=== PATIENT | male | born 1970 | race Caucasian/White ===

== ENCOUNTER 2021-11-01 15:30 | Emergency (ER) | payer OTHER, SELFPAY ==
[2021-11-01 16:03] VITALS: BP 117/80; PULSE 86; RESP 18; TEMP 37; O2SAT 96; BMI 38.0
--- NOTE | 2021-11-01 17:17 | ED_ITS ---
HPI - General Adult General Time Seen by Provider: 17:10 Date Seen: 11/01/21 Chief complaint: Bug Bite Stated complaint: Stings, swelling along arms Time Seen by Provider: 11/01/21 17:08 Source: patient, RN notes reviewed and old records reviewed Mode of arrival: ambulatory Limitations: no limitations History of Present Illness HPI narrative: 51-year-old male who comes in today with swelling and itching of his right arm and right side of his low back. Patient sustained yellow jacket stings on his left hand, right proximal forearm, right elbow, right mid abdomen, and right low back about 5 days ago. He was using some [id number] Benadryl and steroid cream for this, has not taken any oral medications. [place] like it was getting better but then last night noted that the area in the back was becoming more painful and he started developing more pain and swelling in the right wrist and forearm. He has had some body aches, denies chest pain, shortness of breath, fever, nausea, vomiting, diarrhea. Has not taken anything new for his symptoms. No prior history of allergic reaction to insects. Related Data Home Medications Medication Instructions Recorded Confirmed fluoxetine 20 mg capsule (Prozac) 20 mg PO DAILY 11/01/21 11/01/21 rosuvastatin 20 mg tablet (Crestor) 20 mg PO HS 11/01/21 11/01/21 Previous Rx's Medication Instructions Recorded amoxicillin 500 mg-potassium 1 tab PO TID #20 tabs 11/01/21 clavulanate 125 mg tablet (Augmentin) doxycycline hyclate 100 mg capsule 100 mg PO BID #14 caps 11/01/21 prednisone 20 mg tablet 20 mg PO BID #10 tabs 11/01/21 Allergies Allergy/AdvReac Type Severity Reaction Status Date / Time dicyclomine [From Bentyl] AdvReac Intermediate Rash Verified 11/01/21 16:07 Review of Systems Status of ROS: Reports: 10 or more systems reviewed and unremarkable except as noted in History and below Exam Narrative: Exam Narrative: General: Well-developed and well-nourished, no acute distress Head: Atraumatic and normocephalic Eyes: Pupils are equal reactive, extraocular motions intact, conjunctiva clear ENT: External nose and ears are normal, posterior pharynx without erythema or exudate Neck: No midline cervical tenderness, full spontaneous range of motion the neck, trachea midline, no adenopathy Heart: Regular rate and rhythm no murmurs or thrills Lungs: Clear to auscultation bilaterally without wheezes or crackles Abdomen: Soft, nontender, nondistended with active bowel sounds Musculoskeletal: Warmth and redness of the right distal forearm with no pain with passive movement of the wrist or elbow, no effusion of the wrist or elbow, flexor and extensor compartments are soft. Neurologic: Awake, alert, and oriented x3, no gross focal neurologic deficits, cranial nerves intact as tested Psych: Mood and affect are appropriate Skin: Warmth and redness of the extensor surface of the wrist and forearm on the right. Mild erythema and induration overlying the extensor compartment proximal to this with central puncture, area of about 8 cm of erythema on the distal posterior upper arm. 12 cm area of warmth and erythema of the right low back. Const: Vital Signs, click to edit/add: Vital Signs - 24 hr 11/01/21 16:03 Temperature 98.6 F Pulse Rate [Pulse Oximeter] 86 Respiratory Rate 18 Blood Pressure [Ri ght Upper Arm] 117/80 Pulse Oximetry 96 Oxygen Delivery Me thod Room Air Course Course Hospital Course: Patient seen and examined, prior records are reviewed. Patient presents with increasing redness and swelling of areas of the right forearm and right flank where he was stung by yellow jackets about a week ago. He has several areas where he was stung that have improved. The areas of the proximal forearm and distal upper arm appears to represent local reaction to this stings. However, an area where he is not stung on the distal forearm/right wrist, there is warmth and induration which likely represents cellulitis. Additionally, the staying on the right flank has developed increased warmth and erythema likely representing infection. Patient will be started on Rocephin and doxycycline in the emergency department and will be discharged with Augmentin and doxycycline along with short course of prednisone for the noninfected stings with continued local reaction. He can take oral antihistamines as well. Vital Signs Vital signs: Initial Vital Signs Temperature 98.6 F 11/01/21 16:03 Temperature Source Temporal Artery Scan 11/01/21 16:03 Pulse Rate 86 11/01/21 16:03 Respiratory Rate 18 11/01/21 16:03 Blood Pressure 117/80 11/01/21 16:03 Blood Pressure Mean 92 11/01/21 16:03 Blood Pressure Position Sitting 11/01/21 16:03 Pulse Oximetry 96 11/01/21 16:03 Oxygen Delivery Method 11/01/21 16:03 Vital Signs Temperature 98.6 F 11/01/21 16:03 Pulse Rate 86 11/01/21 16:03 Respiratory Rate 18 11/01/21 16:03 Blood Pressure 117/80 11/01/21 16:03 Pulse Oximetry 96 11/01/21 16:03 Oxygen Delivery Method 11/01/21 16:03 Temperature 98.6 F 11/01/21 16:03 Pulse Rate 86 11/01/21 16:03 Respiratory Rate 18 11/01/21 16:03 Blood Pressure 117/80 11/01/21 16:03 Pulse Oximetry 96 11/01/21 16:03 Oxygen Delivery Method 11/01/21 16:03 Medical Decision Making Medical Records Medical records reviewed: Yes I reviewed the patient's medical records Lab Data Lab results reviewed: Yes I reviewed the patient's lab results Discharge Plan Discharge Clinical Impression: Local reaction to insect sting, Infected insect bite or sting Patient Disposition: Home, Self-Care Condition: Stable Instructions: Insect Bite or Sting (ED), Cold Compress or Soak (ED) Additional Instructions: Take antibiotics and prednisone as prescribed. You may take Benadryl to help with itching. Follow-up with your primary care doctor as needed. Activity Level: No Restrictions Discharge Diet: Regular Prescriptions: New amoxicillin-pot clavulanate [Augmentin] 500-125 mg tablet 1 tab PO TID Qty: 20 0RF doxycycline hyclate 100 mg capsule 100 mg PO BID Qty: 14 0RF prednisone 20 mg tablet 20 mg PO BID Qty: 10 0RF No Action rosuvastatin [Crestor] 20 mg tablet 20 mg PO HS fluoxetine [Prozac] 20 mg capsule 20 mg PO DAILY Stand Alone Forms: [employer] Info Instructions
--- OUTSIDE RECORDS SUMMARY | 2021-11-01 17:29 | XMS_ITS | Encounter Summary ---
:1970 Author Organization [facility] Address [address] [place] [address] Care Team Providers Name Role Phone Maria G Henriquez Primary Care Provider [phone] Encounter Details Date Type Department Care Team Description 04/06/2021 Admin Visit Department of Family [facility], [facility] M[facility], in [place], [address] [place], [place] [address] [place] [address] [place], [place] [phone] (Work) [phone] Social History Tobacco Use Types Packs/Day Years Used Date Smoking Tobacco: Never Smokeless Tobacco: Never Alcohol Use Standard Drinks/Week Comments Not Currently 0 (1 standard drink = 0.6 oz pure alcoho l) stpped drinking 13 years Alcohol Habits Answer Date Recorded How often do you have a drink containing Never 08/12/2021 alcohol? How many drinks containing alcohol do you have Not asked on a typical day when you are drinking? How often do you have six or more drinks on Not asked one occasion? Comment: stpped drinking 13 years 12/02/2020 Social Isolation Answer Date Recorded In a typical week, how many times do you talk on the phone T wice a week 08/12/2021 with family, friends, or neighbors? How often do you get together with friends or relatives? Nev er 08/12/2021 How often do you attend voodoo or confucianism services? Never 08/12/2021 Do you belong to any clubs or organizations such as voodoo N o 08/12/2021 groups, unions, fraternal or athletic groups, or school groups? How often do you attend meetings of the clubs or Never 08/12/2021 organizations you belong to? Are you now , , , , never Mar ried 08/12/2021 or living with a partner? Physical Activity Answer Date Recorded On average, how many days per week do you engage in moderate to 0 days 08/12/2021 strenuous exercise (like walking fast, running, jogging, dancing, swimming, biking, or other activities that cause a light or heavy sweat)? On average, how many minutes do you engage in exercise at th is 0 min 08/12/2021 level? Stress Answer Date Recorded Do you feel stress - tense, restless, nervous, or anxious, R ather much 08/12/2021 or unable to sleep at night because your mind is troubled all the time - these days? Financial Resource Strain Answer Date Recorded How hard is it for you to pay for the very basics like Not v brian hard 08/12/2021 food, housing, medical care, and heating? Intimate Partner Violence Answer Date Recorded Within the last year, have you been afraid of your partner o r No 08/12/2021 ex-partner? Within the last year, have you been humiliated or emotionall y No 08/12/2021 abused in other ways by your partner or ex-partner? Within the last year, have you been kicked, hit, slapped, or No 08/12/2021 otherwise physically hurt by your partner or ex-partner? Within the last year, have you been raped or forced to have any No 08/12/2021 kind of sexual activity by your partner or ex-partner? Food Insecurity Answer Date Recorded Within the past 12 months, you worried that your food would Never true 08/12/2021 run out before you got money to buy more. Within the past 12 months, the food you bought just didn't N ever true 08/12/2021 last and you didn't have money to get more. Transportation Needs Answer Date Recorded In the past 12 months, has lack of transportation kept you f rom No 08/12/2021 medical appointments or from getting medications? In the past 12 months, has lack of transportation kept you f rom No 08/12/2021 meetings, work, or getting things needed for daily living? Housing Stability Answer Date Recorded In the last 12 months, was there a time when you were not ab le Yes 08/12/2021 to pay the mortgage or rent on time? In the last 12 months, how many places have you lived? 1 08/12/2021 In the last 12 months, was there a time when you did not hav e a No 08/12/[address] or slept in a snf (including now)? Education Answer Date Recorded What is the highest level of school you have completed or 12 th grade 02/08/2021 the highest degree you have received? 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 documented in this encounter Results SARS Coronavirus-2 RNA, V Asymptomatic (04/06/2021 10:16 AM WEAVER APPRENTICE) [facility] Method Time Signature SARS-CoV-2 Swab, 04/06/2021 ECLR Specimen Nasopharynx 8:39 PM WEAVER APPRENTICE Source SARS CoV-2 Undetected Undetected 04/06/2021 ECLR RNA, TMA 8:39 PM WEAVER APPRENTICE Comment: SARS-CoV-2 RNA absent. This result does not rule out COVID-19 in the patient, as the sensitivity of the test depends o n the timing of the specimen collection and the quality of the specim en. Result should be correlated with patient's history and clinical presentat ion. ----ADDITIONAL INFORMATION---- This molecular amplification test was pe rformed using the Aptima SARS-CoV-2 assay ([employer] on the [place] tem under emergency use authorization (EUA) by the U.S. Food and Drug Administ ration. Fact sheets for this EUA assay can be fo und at the following links: For Healthcare Providers: https://www.fd a.gov/media/153671/download For Patients: https://www.fda.gov/media/ 529174/download Specimen Anatomical Collection Method Collection Time Receive d Time (Source) Location / / Volume Laterality Varies 04/06/2021 10:16 04/06/2021 3:00 (Nasopharynx) AM WEAVER APPRENTICE PM WEAVER APPRENTICE Maverick Stuart M.D. LAB MICROBIOLOGY - GENERAL O RDERABLES Performing Organization Address City/State/ZIP Code Phon e Number [facility]- [address] [place] [phone] [facility] [place] [address] System in [address] documented in this encounter Visit Diagnoses Diagnosis Screening Cancer Colon documented in this encounter Additional Health Concerns Infection Onset Date Last Indicated Resolved Time COVID19 Pending 04/05/2021 04/06/2021 04/06/2021 8:40 PM WEAVER APPRENTICE documented as of this encounter Care Teams Collision Repair Technician Relationship Specialty Start Date End Date Maria G Henriquez M.B.B.S. PCP - General Internal Medicine 11/24/[address] [place] [id number] documented as of this encounter
--- OUTSIDE RECORDS SUMMARY | 2021-11-01 17:29 | XMS_ITS | Encounter Summary ---
:1970 Author Organization [facility] Address [address] [place] [address] Care Team Providers Name Role Phone Maria G Henriquez M.B.B.S. Primary Care Provider [phone] Reason for Visit Reason Comments Allergies Encounter Details Date Type Department Care Team Description 06/14/2021 Office Visit Department of Maria G Henriquez, Allergy Seasonal Internal Medicine in [place] (Primary Dx) [address] [phone] Social History Tobacco Use Types Packs/Day Years [...] do you talk on the phone T nashce a week 08/12/2021 with family, friends, or neighbors? How often do you get together with friends or relatives? Nev er 08/12/2021 How often do you attend advent or restoration services? Never 08/12/2021 Do you belong to any clubs or organizations such as advent N o 08/12/2021 groups, unions, fraternal or [...] place to sleep or slept in a prison (including now)? Education Answer Date Recorded What is the highest level of school you have completed or 12 th grade 02/08/2021 the highest degree you have received? 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 - 06/14/2021 4:30 PM CDT SUBJECTIVE CHIEF COMPLAINT / REASON FOR VISIT Miguel Navarro is a 51 y.o. male who presents for evaluation of Allergies. HISTORY OF PRESENT ILLNESS 51 years old male here in the clinic today with severe allergy reactions triggered by seasonal changes. He has similar episodes in the past, not responding to conventional allergy approach with antihistamine and Flonase. He used to improved with Kenalog injections. He is here today to get injection. He has nasal congestion, sinus pressure. The following portions of the patient's history were reviewed and updated as appropriate: allergies,current medications, family history, medical history, social history, surgical history and problem list. REVIEW OF SYSTEMS All other systems reviewed and are negative. OBJECTIVE BP 136/87 (BP Location: Left arm, Patient Position: Sitting, Cuff Size: Large) Pulse 61 Temp (!)35.9 ??C (Temporal) Ht 177.6 cm Wt 117 kg BMI 37.06 kg/m?? PHYSICAL EXAM Physical Exam Physical exam not done today ASSESSMENT / PLAN #1 Allergy Seasonal Acute exacerbation of seasonal allergy not responding to [id number] antihistamine and Flonase.He had similar episodes in the past and responds well to Kenalog injections per chart review. Encouraged the patient to continue taking antihistamine and Flonase for his allergies. 40 mg of Kenalog IM given in the clinic today. documented in this encounter Plan of Treatment Not on filedocumented as of this encounter Visit Diagnoses Diagnosis Allergy Seasonal - Primary documented in this encounter Administered Medications Inactive Administered Medications - up to 3 most recent administrations Medication Order MAR Action Action Date Dose Rate Site triamcinolone acetonide injection Given 06/14/2021 5:03 PM CDT 4 0 mg 40 mg (KENALOG-40) 40 mg, intra-articular, Once, On Sun06/14/21 at 1700, For 1 dose documented in this encounter Additional Health Concerns Assessment Noted Time PHQ-9 Depression Total Score: 4 04/19/2021 2:49 PM KNIT GOODS PRESS HAND documented as of this encounter Care Teams Data Integrity Consultant Relationship Specialty Start Date End Date Maria G Henriquez M.B.B.S. PCP - General Internal Medicine 11/24/20 [place] [phone] documented as of this encounter
--- OUTSIDE RECORDS SUMMARY | 2021-11-01 17:29 | XMS_ITS | Encounter Summary ---
:1970 Author Organization [facility] Address [address] [place] [address] Care Team Providers Name Role Phone Maria G Henriquez Primary Care Provider [phone] Reason for Visit Reason Onset Date Comments Testing For Upper Respiratory Virus Symptoms 04/05/2021 Encounter Details Date Type Department Care Team Description 04/05/2021 External Outreach Department of [facility] Zita Sweet Contact With And Medicine, Rafael Wells P.A.-C. (Suspected) Exposure Clinic, in [address] To COVID-19 (Primary [place], [place] Dx) [address] [facility] [address] [place], [place] [phone] (Work) [phone] Social History Tobacco Use Types Packs/Day Years [...] er 08/12/2021 How often do you attend judaism or presybeterian services? Never 08/12/2021 Do you belong to any clubs or organizations such as judaism N o 08/12/2021 groups, unions, fraternal or [...] place to sleep or slept in a fdc (including now)? Education Answer Date Recorded What is the highest level of school you have completed or 12 th grade 02/08/2021 the highest degree you have received? 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 - 04/05/2021 8:47 AM CST Encounter created for symptomatic infectious disease screening with possible COVID, Influenza, RSV, and/or Group A Strep testing. R EXPRESS CLERK documented in this encounter Plan of Treatment Not on filedocumented as of this encounter Visit Diagnoses Diagnosis Contact With And (Suspected) Exposure To COVID-19 - Primary documented in this encounter Additional Health Concerns Infection Onset Date Last Indicated Resolved Time COVID19 Pending 04/05/2021 04/06/2021 04/06/2021 8:40 PM MOTOR EXPRESS CLERK documented as of this encounter Care Teams Pole Lift Operator Relationship Specialty Start Date End Date Maria G Henriquez M.B.B.S. PCP - General Internal Medicine 11/24/20 [place] [phone] documented as of this encounter
--- OUTSIDE RECORDS SUMMARY | 2021-11-01 17:29 | XMS_ITS | Encounter Summary ---
:1970 Author Organization [facility] Address [address] [place] [address] Care Team Providers Name Role Phone Maria G Henriquez Primary Care Provider [phone] Reason for Visit Auth/Cert Specialty Diagnoses / Procedures Referred By Contact Refer red To Contact Diagnoses Screening Colon Cancer Average Risk Screening Colon Cancer Average Risk [Z12.11] Procedures COLONOSCOPY Referral ID Status Reason Start Date Expiration Date Visits Requ ested Visits Authorized [id number] 1 1 Encounter Details Date Type Department Care Team Description 04/08/2021 Hospital Encounter Department of Maverick Stuart, Gastroenterology in [place], [place] [address] [place] [address] [phone] [id number] Social History Tobacco Use Types Packs/Day Years [...] er 08/12/2021 How often do you attend denominational or mu-ism services? Never 08/12/2021 Do you belong to any clubs or organizations such as denominational N o 08/12/2021 groups, unions, fraternal or [...] place to sleep or slept in a half-way (including now)? Education Answer Date Recorded What is the highest level of school you have completed or 12 th grade 02/08/2021 the highest degree you have received? 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 documented as of this encounter Last Filed Vital Signs Vital Sign Reading Time Taken Comments Blood Pressure 114/72 04/08/2021 12:30 PM GOODWILL AMBASSADOR Pulse 62 04/08/2021 12:45 PM GOODWILL AMBASSADOR Temperature 36 ??C (96.8 ??F) 04/08/2021 11:09 AM GOODWILL AMBASSADOR Respiratory Rate 20 04/08/2021 11:09 AM GOODWILL AMBASSADOR Oxygen Saturation 98% 04/08/2021 12:45 PM GOODWILL AMBASSADOR Inhaled Oxygen Concentration - - Weight 117 kg (258 lb 6.1 oz) 04/08/2021 11:03 AM GOODWILL AMBASSADOR Height - - Body Mass Index 37.16 03/14/2021 3:14 PM GOODWILL AMBASSADOR documented in this encounter Medications at Time of Discharge Medication Sig Dispensed Refills Start Date End Date FLUoxetine (PROzac) 40 TAKE 1 CAPSULE (40 90 capsule 3 02/23 mg capsuleIndications: MG TOTAL) BY MOUTH Depression Major One DAILY. Episode Moderate (HCC) polyethylene glycol Drink 1st portion of 238 g 0 2021 (MIRALAX) 17 gram/dose prep at 6 PM the oral powderIndications: evening before. 2nd Screening Colon Cancer portion must be Average Risk started 4 hours before and finished 2 hours prior to report time blood sugar diagnostic 1 strip by not 0 (Contour Next Test applicable route. Strips) strips lancing device misc 1 each by not 0 05/26/2020 applicable route. rosuvastatin (CRESTOR) Take 1 tablet (20 mg 90 tablet 3 10/18/2021 20 mg tabletIndications: total) by mouth Hyperlipidemia Mixed daily. documented as of this encounter Procedure Notes Maverick Stuart M.D. - 04/08/2021 12:04 PM CSTAssociated Order(s): COLONOSCOPY [facility] Patient Name: Miguel Navarro Procedure Date: 04/08/2021 12:04 PM Date of : 1970 Age: 50 Gender: Male Procedure: Colonoscopy Providers: Maverick Sturat MD, Maria G Henriquez (Ordering Provider) Referring Provider: Maria G Henriquez Pre-op Diagnoses: High risk colon cancer surveillance: Personal history of colonic polyps Post-op Diagnoses: - Preparation of the colon was fair. - Five 1 to 14 mm polyps in the transverse colon and in the cecum, removed with a cold snare. Resected and retrieved. - Post-polypectomy scars in the transverse colon and in the cecum. - Diverticulosis in the sigmoid colon. - The examination was otherwise normal on direct and retroflexion views. Recommendation: - Repeat colonoscopy in 2 years because the bowel preparation was suboptimal and for surveillance. - Need extended prep. Findings: The perianal and digital rectal examinations were normal. Five sessile polyps were found in the transverse colon and cecum. The polyps were 1 to 14 mm in size. These polyps were removed with a cold snare. Resection and retrieval were complete. A small post polypectomy scar was found in the transverse colon and in the cecum. There was no evidence of the previous polyp. Multiple small-mouthed diverticula were found in the sigmoid colon. The exam was otherwise without abnormality on direct and retroflexion views. Medicines: Monitored Anesthesia Care Estimated Blood Loss: Estimated blood loss: none. Complications: No immediate complications. Procedure Details: The patient was seen, evaluated, and history reviewed. Airway and heart and lung exams were performed and were satisfactory for planned sedation care. The risks, benefits and alternatives for the procedure and sedation were discussed and informed consent was obtained. A procedural pause was conducted in the presence of assisting personnel to verify the correct patient identity and procedure to be performed. Throughout the procedure, the patient's blood pressure, pulse, and oxygen saturations were monitored continuously. The Colonoscope was introduced under direct vision through the anus and advanced to the terminal ileum. The colonoscopy was performed without difficulty. The patient tolerated the procedure well. The quality of the bowel preparation was evaluated using the BBPS ([place] Bowel Preparation Scale) with scores of: Right Colon = 2 (minor amount of residual staining, small fragments of stool and/or opaque liquid, but mucosa seen well), Transverse Colon = 2 (minor amount of residual staining, small fragments of stool and/or opaque liquid, but mucosa seen well) and Left Colon = 2 (minor amount of residual staining, small fragments of stool and/or opaque liquid, but mucosa seen well). The total BBPS score equals 6. The quality of the bowel preparation was fair. Sedation: DYLAN Stuart MD 04/08/2021 12:07:23 PM This report has been signed electronically. Number of Addenda: 0 Note Initiated On: 04/08/2021 12:04 PM WILL AMBASSADOR documented in this encounter Plan of Treatment Not on filedocumented as of this encounter Procedures Procedure Name Priority Date/Time Associated Diagnosis Comme nts COLONOSCOPY 04/08/2021 12:04 PM Results for this GOODWILL AMBASSADOR procedure are i n the results section. SURGICAL PATHOLOGY Routine 04/08/2021 11:49 AM Re sults for this GOODWILL AMBASSADOR procedure are i n the results section. COLONOSCOPY 04/08/2021 11:34 AM Screening Colon GOODWILL AMBASSADOR Cancer Average Risk documented in this encounter Results COLONOSCOPY (04/08/2021 12:04 PM GOODWILL AMBASSADOR) Specimen (Source) Anatomical Location Collection Method / Collectio n Time Received Time / Laterality Volume Narrative This result has an attachment that is no t available. Procedure Note Maverick Stuart M.D. - 04/08/2021 12:04 PM CST [facility] Patient Name: Miguel Navarro Procedure Date: 04/08/2021 12:04 PM Date of : 1970 Age: 50 Gender: Male Procedure: Colonoscopy Providers: Maverick Stuart MD, Maria G Henriquez (Ordering Provider) Referring Provider: Maria G Henriquez Pre-op Diagnoses: High risk colon cancer surveillance: Personal history of colonic polyps Post-op Diagnoses: - Preparation of the colon was fair. - Five 1 to 14 mm polyps in the transve rse colon and in the cecum, removed with a cold snare. Resected and retrieved. - Post-polypectomy scars in the transve rse colon and in the cecum. - Diverticulosis in the sigmoid colon. - The examination was otherwise normal on direct and retroflexion views. Recommendation: - Repeat colonoscopy in 2 years because the bowel preparation was suboptimal and for surveillance. - Need extended prep. Findings: The perianal and digital rectal examina tions were normal. Five sessile polyps were found in the t ransverse colon and cecum. The polyps were 1 to 14 mm in size. These p olyps were removed with a cold snare. Resection and retrieval were com plete. A small post polypectomy scar was found in the transverse colon and in the cecum. There was no evidence of the previous polyp. Multiple small-mouthed diverticula were found in the sigmoid colon. The exam was otherwise without abnormal ity on direct and retroflexion views. Medicines: Monitored Anesthesia Care Estimated Blood Loss: Estimated blood lo ss: none. Complications: No immediate complication s. Procedure Details: The patient was seen, evaluated, and history reviewed. Airway and heart and lung exa ms were performed and were satisfactory for hermelindo nned sedation care. The risks, benefits and alternatives fo r the procedure and sedation were discussed a nd informed consent was obtained. A procedural paus e was conducted in the presence of assisting personnel to verify the correct patient identity and procedure to be performed. Throughout the procedure, the patient's blood pressure, pulse, and ox ygen saturations were monitored continuously . The Colonoscope was introduced under di rect vision through the anus and advanced to the te rminal ileum. The colonoscopy was performed without d ifficulty. The patient tolerated the procedure wel l. The quality of the bowel preparation was ev aluated using the BBPS ([place] Bowel Preparation Scal e) with scores of: Right Colon = 2 (minor amoun t of residual staining, small fragments of stool and/ or opaque liquid, but mucosa seen well), Transver se Colon = 2 (minor amount of residual staining, sma ll fragments of stool and/or opaque liquid, but muco sa seen well) and Left Colon = 2 (minor amount of res idual staining, small fragments of stool and/ or opaque liquid, but mucosa seen well). The tota l BBPS score equals 6. The quality of the bowel prep aration was fair. Sedation: DYLAN Stuart MD 04/08/2021 12:07:23 PM This report has been signed electronical ly. Number of Addenda: 0 Note Initiated On: 04/08/2021 12:04 PM Maria G Junior GI PROCEDURE ORDERABLES Surgical Pathology (04/08/2021 11:49 AM GOODWILL AMBASSADOR) Component Value Ref Test Analysis Performed At [facility] gist Range Method Time Signature 04/12/2021 ECLR 8:22 AM GOODWILL AMBASSADOR Report Ray A. 04/12/2021 ECLR electronically Lisandra Serrano 8:22 AM GOODWILL AMBASSADOR signed by Specimen Received A. Cecal polyp 04/12/2021 ECLR B. Transverse colon polyp 8:22 AM GOODWILL AMBASSADOR Clinical History Colon cancer 04/12/2021 ECLR screening 8:22 AM GOODWILL AMBASSADOR average risk Gross Description A: ??Received in a container labeled cecum are tw o tissues, 04/12/2021 ECLR 1.1 cm to 1.3 cm. All submitted in cassette A1. 8:22 AM GOODWILL AMBASSADOR B: ??Received in a container labeled transverse colon are multiple tissues, 0.3 cm to 1.2 cm. All submitted in cassette B1. [id number] Interpretation FINAL DIAGNOSIS 04/12/2021 ECLR A. ??Colon, cecum, biopsy: ??Sessile serrated adenoma. 8:22 AM GOODWILL AMBASSADOR B. ??Colon, transverse, biopsy: ??Tubulovillous adenoma. Specimen (Source) Anatomical Collection Method Collection Time Re ceived Time Location / / Volume Laterality Polyp (Colon) 04/08/2021 11:49 AM GOODWILL AMBASSADOR Polyp (Colon) 04/08/2021 11:59 AM GOODWILL AMBASSADOR Narrative This result has an attachment that is no t available. Maverick Stuart M.D. LAB SURG PATH ORDERABLES Performing Organization Address City/State/ZIP Code Phon e Number [facility]- [address] [place] [address] [phone] [facility] [place] [address] System in [place] [address] [facility] documented in this encounter Visit Diagnoses Diagnosis Screening Cancer Colon - Primary Obstructive Sleep Apnea Adult documented in this encounter Admitting Diagnoses Diagnosis Screening Cancer Colon documented in this encounter Administered Medications Inactive Administered Medications - up to 3 most recent administrations Medication Order MAR Action Action Date Dose Rate Site lactated ringers New Bag 04/08/2021 11:10 AM 100 mL/hr 100 mL/hr 100 mL/hr, intravenous, [employer]WILL AMBASSADOR Continuous, Starting on Sun04/08/21 at 1100, Pre-Op sodium chloride 0.9 % injection 10 mL 10 mL, intravenous, As needed, line care , Starting on Sun04/08/21 at 1054, Pre-Op, Peripheral Intravenous Catheter and Rapid Infusion Cat heter, prior to blood sampling, post blood transfusion or post blood samplin g sodium chloride 0.9 % injection 3 mL 3 mL, intravenous, As needed, line care, Starting on Sun04/08/21 at 1054, Pre-Op, Prior to and following infusion and betw een multiple consecutive infusions: sodium chloride 0.9 % injection sodium chloride 0.9 % injection 3 mL 3 mL, intravenous, Every 12 hours scheduled, First dos e on Sun04/08/21 at 2100, Pre-Op, Peripheral Intravenous Catheter and Rapid Infu kaylan Catheter, when no infusion to maintain patency documented in this encounter Active and Recently Administered Medications Times are shown in [employer]WILL AMBASSADOR. Scheduled Medication Order 04/06/2021 04/07/2021 04/08/2021 sodium chloride 0.9 % injection 3 mL 3 mL, intravenous, Every 12 hours schedu led, First dose on Sun04/08/21 at 2100, Pre-Op, Peripheral Intravenous Catheter and Rapid Infusion Catheter, when no infusion to maintain patency Continuous Medication Order 04/06/2021 04/07/2021 04/08/2021 lactated ringers 1110 (New Bag - Provider: Maira Booker R.N.)1216 (Stopped - Provider: Leslie Roman R.N.) 100 mL/hr, intravenous, Continuous, Starting on Sun04/08/21 at 1 100, Pre-Op PRN Medication Order 04/06/2021 04/07/2021 04/08/2021 sodium chloride 0.9 % injection 10 mL 10 mL, intravenous, As needed, line care , Starting on Sun04/08/21 at 1054, Pre- Op, Peripheral Intravenous Catheter and Rapid Infusion Catheter, prior to blood sampling, post blood transfusion or post blood sampling sodium chloride 0.9 % injection 3 mL 3 mL, intravenous, As needed, line care, Starting on Sun04/08/21 at 1054, Pre- Op, Prior to and following infusion and between multiple consecutive infusions: sodium chloride 0.9 % injection documented in this encounter Care Teams Reproduction Production Manager Relationship Specialty Start Date End Date Maria G Henriquez M.B.BHairS. PCP - General Internal Medicine 11/24/20 [address] [place] [address] documented as of this encounter
--- OUTSIDE RECORDS SUMMARY | 2021-11-01 17:29 | XMS_ITS | Encounter Summary ---
:1970 Author Organization [facility] Address [address] [place] [address] Care Team Providers Name Role Phone Maria G HenriquezBHairSaHir Primary Care Provider [phone] Encounter Details Date Type Department Care Team Description 08/17/2021 Orders Only [facility] P[facility] MNT Estelita Sigala Di abetes Mellitus Type M.D. 2 ([facility]) [address] [place] [address] Social History Tobacco Use Types Packs/Day Years [...] er 08/12/2021 How often do you attend muslim or presybeterian services? Never 08/12/2021 Do you belong to any clubs or organizations such as muslim N o 08/12/2021 groups, unions, fraternal or [...] place to sleep or slept in a fci (including now)? Education Answer Date Recorded What is the highest level of school you have GED or equivale nt 08/11/2021 completed or the highest degree you have received? 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 PCP - General Internal Medicine 11/24/20 [address] [place] [phone] documented as of this encounter
--- OUTSIDE RECORDS SUMMARY | 2021-11-01 17:29 | XMS_ITS | Clinical Summary ---
:1970 Author Organization [facility] Address [address] [place] [address] Care Team Providers Name Role Phone Maria G Henriquez Primary Care Provider [phone] Source Comments Patient records contain information from all sites at [facility]. For routine questions regarding patient records, call [phone] during business hours, M-F 8:00 AM - 5:00 PM Central Time. Record requests for emergency care only can be directed to [phone] at any time.[facility] Allergies Active Allergy Reactions Severity Noted Date Comments Atorvastatin Calcium Other (see comments) 12/02/2010 Dicyclomine Rash Low 08/31/2015 Dicyclomine Hcl Other (see comments) 12/02/2010 Simvastatin Other (see comments) 12/02/2010 Medications Medication Sig Dispensed Refills Start End Date Status Date blood sugar 1 strip by not 0 Act franklyn diagnostic (Contour applicable 1 Next Test Strips) route. strips lancing device misc 1 each by not 0 Active applicable 1 route. FLUoxetine (PROzac) TAKE 1 CAPSULE 90 capsule 3 Active 40 mg (40 MG TOTAL) 2 capsuleIndications: BY MOUTH Depression Major DAILY. One Episode Moderate (HCC) polyethylene glycol Drink 1st 238 g 0 Active (MIRALAX) 17 portion of 2 gram/dose oral prep at 6 PM powderIndications: the evening Screening Colon before. 2nd Cancer Average Risk portion must be started 4 hours before and finished 2 hours prior to report time fluticasone Administer 2 0 Activ e propionate sprays into (FLONASE) 50 each nostril mcg/actuation nasal daily. spray cetirizine (ZyrTEC) Take 10 mg by 0 Active 10 mg tablet mouth daily. rosuvastatin Take 1 tablet 90 tablet 3 Act franklyn (CRESTOR) 20 mg (20 mg total) 2 tabletIndications: by mouth Hyperlipidemia daily. Mixed rosuvastatin Take 1 tablet 90 tablet 3 10/19/19 Dis continued (CRESTOR) 20 mg (20 mg total) 2 22 (Reorder) tabletIndications: by mouth Hyperlipidemia daily. 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 09/28/2021 Orders Only Maria G Henriquez, M.B.B.S. 08/17/2021 Orders Only Estelita Sigala, Diabetes Carol litus Type M.DHair 2 (HCC) from Last 3 Months Immunizations Name Administration Dates Next Due HepB, Unspecified 05/31/1998, 03/31/1998, 01/19/1998 SARS-COV-2 (COVID-19) - PFIZER (12 years 03/02/2020, 020 or older) Td, (Adult) Unspecified 08/13/2007 Tdap 09/07/2018, 08/13/2007 Family History Medical History Relation Name Comments Arthritis Brother 1 Aidan Rheum arthritis Brother 2 Aidan m Rheumatoid arteritis Maternal Grandmother Alcohol abuse Mother Mellissa Arthritis Mother Mellissa Rheum arthritis Mother Mellissa Rheumatoid arteritis Mother Mellissa Rheum arthritis Paternal Grandmother Yary Relation Name Status Comments Brother 1 Aidan Brother 2 Aidan m Maternal Grandmother Mother Mellissa Paternal Grandmother Yary Social History Tobacco Use Types Packs/Day Years [...] do you talk on the phone T ash a week 08/12/2021 with family, friends, or neighbors? How often do you get together with friends or relatives? Nev er 08/12/2021 How often do you attend zoroastrian or confucianism services? Never 08/12/2021 Do you belong to any clubs or organizations such as zoroastrian N o 08/12/2021 groups, unions, fraternal or [...] place to sleep or slept in a jail (including now)? Education Answer Date Recorded What is the highest level of school you have GED or equivale nt 08/11/2021 completed or the highest degree you have received? 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 Filed Vital Signs Vital Sign Reading Time Taken Comments Blood Pressure 136/87 06/14/2021 4:16 PM CDT Pulse 61 06/14/2021 4:16 PM CDT Temperature 35.9 ??C (96.6 ??F) 06/14/2021 4:16 PM CDT Respiratory Rate 20 04/08/2021 11:09 AM ELECTRICAL INSTRUMENT REPAIRER Oxygen Saturation 98% 04/08/2021 12:45 PM ELECTRICAL INSTRUMENT REPAIRER Inhaled Oxygen Concentration - - Weight 117 kg (257 lb 11.5 oz) 06/14/2021 4:16 PM CDT Height 177.6 cm (5' 9.92) 06/14/2021 4:16 PM CDT Body Mass Index 37.06 06/14/2021 4:16 PM CDT Plan of Treatment Health Maintenance Due Date Last Done Comments CT Colonography 1970 Cologuard 1970 Diabetic Office Visit with Foot 1970 Exam Dilated Eye Exam 1970 HIV Screening 1970 Hepatitis C Screening 1970 Urine Albumin 1970 Pneumococcal vaccine (0-64 years) 1975 (1 - PCV) Zoster Vaccines (1 of 2) 2019 Hemoglobin A1C 09/11/2021 03/14/2021, 12/07/2020, 03/25/2018 Depression Monitoring (PHQ-9) 10/21/2021 06/20/2021 COVID-19 Vaccine (4 - Booster for 10/26/2021 08/31/2021, , Pfizer series) 02/10/2020 Influenza Vaccine (#1) 2021 Creatinine Level 12/07/2021 12/07/2020, 05/19/2020, 02/03/2019, Additional history exists Visit: Chronic Disease, age 18+ 03/14/2022 03/14/2021 Office Visit for Blood Pressure 06/14/2022 06/14/2021 Check / Re-check Colonoscopy 04/08/2023 04/08/2021, 04/08/2021, 04/05/2018 Colorectal Cancer Surveillance 04/08/2023 Lipid (Cholesterol) Screening 12/07/2025 12/07/2020, 2020, 02/03/2019, Additional history exists DTaP,Tdap,and Td Vaccines (3 - Td 09/07/2028 09/07/2018, , or Tdap) 08/13/2007 Hepatitis B Vaccines Completed 05/31/1998, 03/31/1998, 01/19/1998 Insurance Payer Benefit Plan Subscriber ID Effective Dates Phone Address Type / Group [employer] [place] [id number] 2020-[place] [phone] [address] [address] PPO BLUE SHIELD t [address] [place] [id number] Advance Directives For more information, please contact: [phone] Latest Code Status on File Code Status Date Activated Date Inactivated Comments Full Code 04/08/2021 12:57 PM 04/08/2021 3:02 PM Full Code: Discussed Care Teams Deckhand Fishing Vessel Relationship Specialty Start Date End Date Maria G Henriquez M.B.B.S. PCP - General Internal Medicine 11/24/20 [address] [phone]
--- OUTSIDE RECORDS SUMMARY | 2021-11-01 17:29 | XMS_ITS | Encounter Summary ---
:1970 Author Organization [facility] Address [address] [place] [address] Care Team Providers Name Role Phone Maria G Henriquez Primary Care Provider [phone] Reason for Visit Auth/Cert Specialty Diagnoses / Procedures Referred By Contact Refer red To Contact Diagnoses Screening Colon Cancer Average Risk Screening Colon Cancer Average Risk [Z12.11] Procedures COLONOSCOPY Referral ID Status Reason Start Date Expiration Date Visits Requ ested Visits Authorized [id number] 1 1 Encounter Details Date Type Department Care Team Description 04/08/2021 Surgery Department of Gastroenterology Maverick Calles M.D. COLONOSCOPY-a in [facility] [address] [facility] [address] [place] [phone] (Wo rk) Social History Tobacco Use Types Packs/Day Years [...] er 08/12/2021 How often do you attend adventist or anabaptism services? Never 08/12/2021 Do you belong to any clubs or organizations such as adventist N o 08/12/2021 groups, unions, fraternal or [...] place to sleep or slept in a care home (including now)? Education Answer Date Recorded What is the highest level of school you have completed or 12 th grade 02/08/2021 the highest degree you have received? 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 documented as of this encounter Last Filed Vital Signs Vital Sign Reading Time Taken Comments Blood Pressure 119/72 04/08/2021 12:10 PM QUAIL FARMER Pulse 66 04/08/2021 12:10 PM QUAIL FARMER Temperature 36 ??C (96.8 ??F) 04/08/2021 11:09 AM QUAIL FARMER Respiratory Rate 20 04/08/2021 11:09 AM QUAIL FARMER Oxygen Saturation 95% 04/08/2021 12:10 PM QUAIL FARMER Inhaled Oxygen Concentration - - Weight 117 kg (258 lb 6.1 oz) 04/08/2021 11:03 AM QUAIL FARMER Height - - Body Mass Index 37.16 03/14/2021 3:14 PM QUAIL FARMER documented in this encounter Medications at Time [...] sugar diagnostic 1 strip by not 0 1 (Contour Next Test applicable route. Strips) strips lancing device misc 1 each by not 0 05/26/2020 applicable route. rosuvastatin (CRESTOR) Take 1 tablet (20 mg 90 tablet 3 10/18/2021 20 mg tabletIndications: total) by mouth Hyperlipidemia Mixed daily. documented as of this encounter Procedure Notes Maverick Stuart M.D. - 04/08/2021 12:04 PM CSTAssociated Order(s): COLONOSCOPY [facility] Patient Name: Miguel Navarro Procedure Date: [...] bowel preparation was evaluated using the BBPS ([place] Bowel Preparation Scale) with scores of: Right [...] 0 Note Initiated On: 04/08/2021 12:04 PM L FARMER documented in this encounter Plan of Treatment Not on filedocumented as of this encounter Procedures Procedure Name Priority Date/Time Associated Diagnosis Comme nts COLONOSCOPY 04/08/2021 12:04 PM Results for this QUAIL FARMER procedure are i n the results section. SURGICAL PATHOLOGY Routine 04/08/2021 11:49 AM Re sults for this QUAIL FARMER procedure are i n the results section. COLONOSCOPY 04/08/2021 11:34 AM Screening Colon QUAIL FARMER Cancer Average Risk documented in this encounter Results COLONOSCOPY (04/08/2021 12:04 PM QUAIL FARMER) Specimen (Source) Anatomical Location Collection Method / Collectio n Time Received Time / Laterality Volume Narrative This result has an attachment that is no t available. Procedure Note Maverick Stuart M.D. - 04/08/2021 12:04 PM CST [facility] Patient Name: Miguel Navarro Procedure Date: [...] preparation was ev aluated using the BBPS ([place] Bowel Preparation Scal e) with scores of: [...] PROCEDURE ORDERABLES Surgical Pathology (04/08/2021 11:49 AM QUAIL FARMER) Component Value Ref Test Analysis Performed At [facility] gist Range Method Time Signature 04/12/2021 ECLR 8:22 AM QUAIL FARMER Report Ray A. 04/12/2021 ECLR electronically Lisandra Serrano 8:22 AM QUAIL FARMER signed by Specimen Received A. Cecal polyp 04/12/2021 ECLR B. Transverse colon polyp 8:22 AM QUAIL FARMER Clinical History Colon cancer 04/12/2021 ECLR screening 8:22 AM QUAIL FARMER average risk Gross Description A: ??Received in a container labeled cecum are tw o tissues, 04/12/2021 ECLR 1.1 cm to 1.3 cm. All submitted in cassette A1. 8:22 AM QUAIL FARMER B: ??Received in a container labeled transverse colon are multiple tissues, 0.3 cm to 1.2 cm. All submitted in cassette B1. [id number] Interpretation FINAL DIAGNOSIS 04/12/2021 ECLR A. ??Colon, cecum, biopsy: ??Sessile serrated adenoma. 8:22 AM QUAIL FARMER B. ??Colon, transverse, biopsy: ??Tubulovillous adenoma. Specimen (Source) Anatomical Collection Method Collection Time Re ceived Time Location / / Volume Laterality Polyp (Colon) 04/08/2021 11:49 AM QUAIL FARMER Polyp (Colon) 04/08/2021 11:59 AM QUAIL FARMER Narrative This result has an attachment that is no t available. Maverick Stuart M.D. LAB SURG PATH ORDERABLES Performing Organization Address City/State/ZIP Code Phon e Number [facility]- [address] [place] [address] [address] [facility] [place] [address] System in [place] 12[address] [facility] documented in this encounter Visit Diagnoses Diagnosis Screening Cancer Colon - Primary Obstructive Sleep Apnea Adult Screening Colon Cancer Average Risk documented in this encounter Admitting Diagnoses Diagnosis Screening Cancer Colon documented in this encounter Administered Medications Inactive Administered Medications - up to 3 most recent administrations Medication Order MAR Action Action Date Dose Rate Site lactated ringers New Bag 04/08/2021 11:10 AM 100 mL/hr 100 mL/hr 100 mL/hr, intravenous, QUAIL FARMER Continuous, Starting on Sun04/08/21 at 1100, Pre-Op [...] Recently Administered Medications Times are shown in QUAIL FARMER. Scheduled Medication Order 04/06/2021 04/07/2021 04/08/2021 sodium [...] injection documented in this encounter Care Teams Electronic Engineering Technician Relationship Specialty Start Date End Date Maria G Henriquez M.B.B.S. PCP - General Internal Medicine 11/24/20 [facility] [place] [phone] documented as of this encounter
--- OUTSIDE RECORDS SUMMARY | 2021-11-01 17:29 | XMS_ITS | Encounter Summary ---
:1970 Author Organization [facility] Address [address] [place] [address] Care Team Providers Name Role Phone Maria G Henriquez .B.B.S. Primary Care Provider [phone] Encounter Details Date Type Department Care Team Description 06/10/2021 Clinical Communication Department of Maria G Henriquez , Internal Medicine in [facility] [place], [place] 701 [facility] [address] [place] [phone] Social History Tobacco Use Types Packs/Day Years [...] er 08/12/2021 How often do you attend alevism or mandaeism services? Never 08/12/2021 Do you belong to any clubs or organizations such as alevism N o 08/12/2021 groups, unions, fraternal or [...] place to sleep or slept in a group home (including now)? Education Answer Date Recorded What is the highest level of school you have completed or 12 th grade 02/08/2021 the highest degree you have received? 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 - 06/13/2021 3:01 PM CDT FYI for appointment tomorrow. Telephone Encounter - Anna Harkins M.D. - 06/13/2021 2:34 PM CDT Given that it is tomorrow - recommend seeing Dr Henriquez to review and discuss and start the steps in assessing symptoms, history. Telephone Encounter - Paulette Hwang L.P.NHair - 06/10/2021 11:51 AM CDT Patient has appointment scheduled on 06/14/21 Last OV with PCP: 03/14/21 Please advise if patient should keep appointment. Thank you Telephone Encounter - Vera Mckeon - 06/10/2021 10:15 AM CDT Miguel Gomes called to see if he could just get a referral for Allergy without being seen by Dr Henriquez. Hescheduled an upcoming appointment to talk to Dr Henriquez about this but if he could just bypass the visit and go straight to allergy? If he can, he would like to cancel his appointment. Pts phone number is [phone] documented in this encounter Plan of Treatment Not on filedocumented as of this encounter Visit Diagnoses Not on filedocumented in this encounter Additional Health Concerns Assessment Noted Time PHQ-9 Depression Total Score: 4 04/19/2021 2:49 PM SAP PORTAL ARCHITECT documented as of this encounter Care Teams Supervisor Net Making Relationship Specialty Start Date End Date Maria G Henriquez M.B.B.S. PCP - General Internal Medicine 11/24/[address] [place] [phone] documented as of this encounter
--- OUTSIDE RECORDS SUMMARY | 2021-11-01 17:29 | XMS_ITS | Encounter Summary ---
:1970 Author Organization [facility] Address [address] [place] [address] Care Team Providers Name Role Phone Maria G Henriquez Primary Care Provider [phone] Reason for Visit Auth/Cert Specialty Diagnoses / Procedures Referred By Contact Refer red To Contact Diagnoses Screening Colon Cancer Average Risk Screening Colon Cancer Average Risk [Z12.11] Procedures COLONOSCOPY Referral ID Status Reason Start Date Expiration Date Visits Requ ested Visits Authorized [id number] 1 1 Encounter Details Date Type Department Care Team Description 04/08/2021 Anesthesia Event Department of Laura Lemon APRN, MUNICIPAL COURT JUDGE [address] [place] [phone] Gastroenterology in [facility] Deedee Acosta M.D. [address] [place] [phone] [phone] Anesthesia Record Procedure Summary Procedure Name Responsible Anesthesiologist Anesthesia Start Ti me Anesthesia Stop Time COLONOSCOPY-a Behzad Lemon APRN, 04/08/[address] Events Date Time Event Comment 04/08/2021 1121 1137 An Start Machine/Equipmen t Checked Infection Precautions Foll owed Procedure/Site Verified NPO Sta tus Verified Supine Standard ASA Mon itors Applied 1143 Turnover to Proceduralist 1143 Proc Start 1203 Proc Fin 1203 Turnover to ANE Staff 1203 an stop data 1204 An End I completed my h andoff to the receiving staff during [facility] we 1. Identified the patient 2. Ident ified the responsible provider 3. Revi ewed the pertinent medical history 4. Discu ssed the surgical course 5. Reviewed intra-o p anesthesia management and issues during an esthesia 6. Set expectations for post-procedure period 7. Allowed opportun ity for questions and acknowledgement of understanding. Name Total midazolam PF injection 1 mg/mL 2 mg fentanyl injection 50 mcg/mL 100 mcg propofol 10 mg/mL injection 30 mg propofol 10 mg/mL infusion 115.44 mg ondansetron PF 4 mg/2 mL injection 4 mg Lactated Ringers Free Drip 0 mL Agents No agents on file. Blood No blood administrations on file. Lines, Drains, and Airways Type Details Placement Removal Peripheral IV Placement Date: 04/08/21; 04/08/211104 by Flor hull, Placement Time: 1104; Catheter Maira Pan RSilvano Size: 20 G; Orientation: Right; Location: Hand; Site Prep: Chlorhexidine (Preferred); Technique: Anatomical landmarks; Inserted by: Maira Booker; Insertion Attempts: 1 documented in this encounter Social History Tobacco Use Types Packs/Day Years [...] er 08/12/2021 How often do you attend mandaen or alevism services? Never 08/12/2021 Do you belong to any clubs or organizations such as mandaen N o 08/12/2021 groups, unions, fraternal or [...] place to sleep or slept in a senior living (including now)? Education Answer Date Recorded What is the highest level of school you have completed or 12 th grade 02/08/2021 the highest degree you have received? 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 Responsible Provider: Anesthesia Type: MAC ASA Status: 3 Anesthesia Type: MAC Last vitals Vitals Value Taken Time BP Temp Pulse Resp SpO2 Please reference Vitals flowsheet for most recent vital signs. Anesthesia Post Evaluation Patient Disposition: dismissal Cardiovascular status: hemodynamics (HR & BP) acceptable Respiratory status: patent airway with spontaneous effort Temperature: normothermic Oxygen requirements: room air Level of consciousness: awake Pain score: pain adequately controlled and/or at baseline Post Op nausea/vomiting: none Hydration status: euvolemic NSION ASSOCIATE Anesthesia Preprocedure Evaluation - Garima Cortes M.D. - 04/08/2021 11:21 AM CST Preprocedure Anesthesia & H&P Assessment Procedure Summary Date/Time: 04/08/21 1140 Procedure: COLONOSCOPY-a (N/A ) Diagnosis: Screening Colon Cancer Average Risk [Z12.11] Pre-op diagnosis: Screening Colon Cancer Average Risk [Z12.11] Location: [place] [address] / [facility] Providers: Maverick Stuart M.D. Pertinent components of the patient's history including current problem list, medical history, surgical history, family history, social history, medications and allergies were reviewed. Present illnessand pre-op diagnosis were confirmed. The planned surgery / procedure was verified with the patient /legal guardian. The patient's general health condition remains unchanged RELEVANT COMORBID CONDITIONS RESP (+) Obstructive Sleep Apnea Adult ENDO (+) Diabetes Mellitus Type 2 (HCC) (Resolved after 40# weight loss) GENETICS (+) Diabetes Mellitus Type 2 (HCC) (Resolved after 40# weight loss) (+) Hyperlipidemia Mixed Other (+) Morbid Obesity (HCC) ASSESSMENT / PLAN ANESTHESIA PLAN ASA: 3 Anesthesia Plan: MAC Discussed potential for recall with MAC Patient seen and allergies reviewed, anesthesia plan and risks discussed directly with patient /legal guardian or through an mother repairer. The use of blood products not discussed Approval to Proceed: approved for anesthesia NSION ASSOCIATE documented in this encounter Plan of Treatment Not on filedocumented as of this encounter Visit Diagnoses Not on filedocumented in this encounter Administered Medications Inactive Administered Medications - up to 3 most recent administrations Medication Order MAR Action Action Date Dose Rate Site fentaNYL injection (SUBLIMAZE) Given 04/08/2021 11:39 AM EXTENSION ASSOCIATE 100 mcg intravenous, As needed, Starting on Sun04/08/21 at 1139, Anesthesia Intra-op lactated ringers New Bag 04/08/2021 11:37 AM EXTENSION ASSOCIATE intravenous, Continuous Infusion: Per Instructions PRN, Starting on Sun04/08/21 at 1137, Anesthesia Intra-op midazolam (PF) injection (VERSED) Given 04/08/2021 11:37 AM EXTENSION ASSOCIATE 2 mg intravenous, As needed, Starting on Sun04/08/21 at 1137, Anesthesia Intra-op ondansetron (PF) injection (ZOFRAN) Given 04/08/2021 11:39 AM EXTENSION ASSOCIATE 4 mg intravenous, As needed, Starting on Sun04/08/21 at 1139, Anesthesia Intra-op propofol 10 mg/mL infusion Rate/Dose 04/08/2021 25 mcg/kg/min 17.58 (DIPRIVAN) Change 11:54 AM EXTENSION ASSOCIATE mL/hr intravenous, Continuous Infusion: Per Instructions PRN, Starting on Sun04/08/21 at 1141, Anesthesia Intra-op Rate/Dose Change 04/08/2021 11:50 AM EXTENSION ASSOCIATE 40 mcg/kg/min 28.128 mL/hr Rate/Dose Change 04/08/2021 11:44 AM EXTENSION ASSOCIATE 50 mcg/kg/min 35.16 mL/hr propofoL injection (DIPRIVAN) Given 04/08/2021 11:39 AM EXTENSION ASSOCIATE 30 mg intravenous, As needed, Starting on Sun04/08/21 at 1139, Anesthesia Intra-op documented in this encounter Care Teams Four H Agent Relationship Specialty Start Date End Date Maria G Henriquez M.B.BHairS. PCP - General Internal Medicine 11/24/20 [address] [place] [phone] documented as of this encounter
--- OUTSIDE RECORDS SUMMARY | 2021-11-01 17:29 | XMS_ITS | Encounter Summary ---
:1970 Author Organization [facility] Address [address] [place] [address] Care Team Providers Name Role Phone Maria G Henriquez M.B.B.S. Primary Care Provider [phone] Reason for Visit Reason Comments Med Refill Encounter Details Date Type Department Care Team Description 10/18/2021 Refill Department of Internal Maria G Henriquez, Med Refill Medicine in [place], .B.B.S. [address] [address] [place] [address] [phone] Social History Tobacco Use Types Packs/Day Years [...] er 08/12/2021 How often do you attend anabaptism or latter day services? 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 PCP - General Internal Medicine 11/24/20 [address] [place] [address] documented as of this encounter
--- OUTSIDE RECORDS SUMMARY | 2021-11-01 17:29 | XMS_ITS | Encounter Summary ---
:1970 Author Organization [facility] Address [address] [place] [address] Care Team Providers Name Role Phone Maria G HenriquezB.B.S. Primary Care Provider [phone] Reason for Referral Specialty Diagnoses / Procedures Referred By Contact Refer red To Contact Maria G Henriquez M .B.B.S. [facility] [address] [place] [phone] Referral ID Status Reason Start Date Expiration Date Visits Requ ested Visits Authorized Encounter Details Date Type Department Care Team Description 09/28/2021 Orders Only [facility] Dennise Henriquez M.B.B.S. [address] [place] [phone] (Wo rk) Social History Tobacco Use Types [...] times do you talk on the phone Priscilla aleman a week 08/12/2021 with family, friends, or neighbors? How often do you get together with friends or relatives? Nev er 08/12/2021 How often do you attend samaritan or restoration services? Never 08/12/2021 Do you belong to any clubs or organizations such as samaritan N o 08/12/2021 groups, unions, fraternal or [...] pay for the very basics like Not ginny brian hard 08/12/2021 food, housing, medical care, [...] place to sleep or slept in a detention (including now)? Education Answer Date Recorded What is the highest level of school you have GED or equivale nt 08/11/2021 completed or the highest degree you have received? 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 PCP - General Internal Medicine 11/24/20 [address] [place] [phone] documented as of this encounter
--- OUTSIDE RECORDS SUMMARY | 2021-11-01 17:29 | XMS_ITS | Encounter Summary ---
:1970 Author Organization [facility] Address [address] [place] [address] Care Team Providers Name Role Phone Maria G Henriquez M.B.B.S. Primary Care Provider Encounter Details Date Type Department Care Team Description 03/14/2021 Hospital Encounter Department of Maria G Henriquez bryon Mellitus Laboratory Medicine Elaine Barajas.B.B.S. Type 2 (HCC) in [address] [address] [place], [place] [phone] [address] (Work) [phone] Social History Tobacco Use Types Packs/Day Years [...] er 08/12/2021 How often do you attend oriental orthodox or adventism services? Never 08/12/2021 Do you belong to any clubs or organizations such as oriental orthodox N o 08/12/2021 groups, unions, fraternal or [...] place to sleep or slept in a long term (including now)? Education Answer Date Recorded What is the highest level of school you have completed or 12 th grade 02/08/2021 the highest degree you have received? 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 Strips) strips FLUoxetine (PROzac) 40 TAKE 1 CAPSULE (40 90 capsule 3 02/23 mg capsuleIndications: MG TOTAL) BY MOUTH Depression Major One DAILY. Episode Moderate (HCC) lancing device misc 1 each by not 0 05/26/2020 applicable route. polyethylene glycol Drink 1st portion of 238 g 0 2021 (MIRALAX) 17 gram/dose prep at 6 PM the oral powderIndications: evening before. 2nd Screening Colon Cancer portion must be Average Risk started 4 hours before and finished 2 hours prior to report time rosuvastatin (CRESTOR) Take 1 tablet (20 mg 90 tablet 3 10/18/2021 20 mg tabletIndications: total) by mouth Hyperlipidemia Mixed daily. documented as of this encounter Plan of Treatment Not on filedocumented as of this encounter Procedures Procedure Name Priority Date/Time Associated Diagnosis Comme nts HEMOGLOBIN A1C, B Routine 03/14/2021 7:39 AM Diabetes Mellitus Results for this GAMMA OPERATOR Type 2 (HCC) procedure are i n the results section. documented in this encounter Results (ABNORMAL) Hemoglobin A1c (03/14/2021 7:39 AM GAMMA OPERATOR) P athologist Signature Hemoglobin A1c, 5.8 (H) 4.2 - 5.6 03/14/2021 [facility] B % 7:57 AM GAMMA OPERATOR Comment: Hemoglobin A1c values of 5.7-6.4 percent indicate an increased risk for developing diabetes elaine chow. In diabetic patients, HbA1c goals should be discussed with healthcare provider. Specimen Anatomical Collection Method Collection Time Receive d Time (Source) Location / / Volume Laterality Blood (Blood, 03/14/2021 7:39 AM 03/14/19 7:43 Venous) GAMMA OPERATOR AM GAMMA OPERATOR Maria G AlvarezS. LAB BLOOD ADD-ON Performing Organization Address City/State/ZIP Code Phon e Number [facility]- [address] [place], [place] [address] [address] [place] [address] System in [place] Cesar Mason documented in this encounter Visit Diagnoses Diagnosis Diabetes Mellitus Type 2 (HCC) documented in this encounter Care Teams Furniture Servicer Relationship Specialty Start Date End Date Maria G Henriquez M.B.B.S. PCP - General Internal Medicine 11/24/20 [address] [place] [phone] documented as of this encounter
--- OUTSIDE RECORDS SUMMARY | 2021-11-01 17:29 | XMS_ITS | Encounter Summary ---
:1970 Author Organization [facility] Address [address] [place] [address] Care Team Providers Name Role Phone Maria G Henriquez Primary Care Provider [phone] Encounter Details Date Type Department Care Team Description 04/08/2021 Ancillary Procedure Department of Gastroenterology Social History Tobacco Use Types Packs/Day Years [...] er 08/12/2021 How often do you attend quaker or congregational services? Never 08/12/2021 Do you belong to any clubs or organizations such as quaker N o 08/12/2021 groups, unions, fraternal or [...] place to sleep or slept in a chcf (including now)? Education Answer Date Recorded What is the highest level of school you have completed or 12 th grade 02/08/2021 the highest degree you have received? 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 documented in this encounter Results Colonoscopy-Gastroenterology Image Exam (04/08/2021 12:05 PM BULLDOZER ENGINEER) Specimen (Source) Anatomical Collection Method Collection Time Re ceived Time Location / / Volume Laterality 04/08/2021 12:04 PM BULLDOZER ENGINEER Narrative [facility] - 04/08/2021 12:12 PM BULLDOZER ENGINEER This order has been created and auto-finalized to support the import of images acquired without order. The clini popeye documentation to support these images can be found on the encounter tip t produced images. Provider Not In System IMG NON RAD IMAGING PROCEDUR ES Performing Organization Address City/State/ZIP Code Phon e Number [facility] NA documented in this encounter Visit Diagnoses Not on filedocumented in this encounter Care Teams Trimming Press Operator Relationship Specialty Start Date End Date Maria G Henriquez M.B.B.S. PCP - General Internal Medicine 11/24/20 [place] [address] documented as of this encounter
--- OUTSIDE RECORDS SUMMARY | 2021-11-01 17:29 | XMS_ITS | Encounter Summary ---
:1970 Author Organization [facility] Address [address] [place] [address] Care Team Providers Name Role Phone Maria G Henriquez Primary Care Provider [phone] Reason for Visit Reason Comments Colonoscopy Endoscopy education Encounter Details Date Type Department Care Team Description 03/24/2021 Clinical Communication [facility] MAIN OR Betsy Call Colonoscopy; [address], R.N. Endoscopy [place], [place] [address] (education) [id number] vd [phone] [place] [address] Social History Tobacco Use Types Packs/Day [...] How often do you attend alevism or muslim services? Never 08/12/2021 Do you belong to [...] place to sleep or slept in a longterm (including now)? Education Answer Date Recorded What is the highest level of school you have completed or 12 th grade 02/08/2021 the highest degree you have received? 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 - 04/01/2021 3:27 PM CST Procedure: Upper Endoscopy with Hart: If yes, proton pump inhibitor needs to be held for 5 days prior to scope Colonoscopy Indication for procedure: Screening Date: 04/08/21 Location: [place] Surgeon: Dr. Stuart PCP: Sandi Goddard (home) [phone] (mobile) Comments: COVID-19 swab Date/Status: 04/06/21 Inpatient or Outpatient: Outpatient Prep: MiraLax-encouraged low fiber starting now. Extended prep needed? no History of Chronic Constipation or Incomplete bowel prep? No If yes, contact ordering provider Was prep sent to the pharmacy? Has he received the prep? yes yes BMI or last known BMI BMI <45 can schedule CF, LC, and AL BMI<50 for AU and RW, if BMI 50-55 need anesthesia approval BMI >55 refer to [facility] Height: Height: 177.6 cm (03/14/2021 3:14 PM) Actual Weight: Weight: 120 kg (03/14/2021 3:14 PM) Estimated Weight: No data recorded BMI: Estimated body mass index is 38.11 kg/m?? as calculated from the following: Height as of 03/14/21: 177.6 cm. Weight as of 03/14/21: 120 kg. Diabetic notype of diabetic medication: n/a Educated per [facility] Patient Education: Diabetes Medication Instructions: Tests, Procedures, andSurgeries that require Fasting Anticoagulation: - Aspirin - Warfarin (Coumadin) - Apixiban (Eliquis) - Dabagatran etexilate (Pradaxa) - Rivaroxaban (Xarelto) - Enoxaparin (Lovenox) - Fondaparinux (Arixtra) - Clopidogrel (Plavix) - Ticagrelor (Brillinta) - Prasugrel (Effient) No Routed to managing team: N/A Implanted Cardiac Device Interrogation date needs to be within 6 months no If yes, only okay to schedule in [place] and [place] Last date interrogated: N/A (if no, route to pcp) Do you take daily prescription pain medication? no Difficulties laying flat no IMANI needed? -Oxygen dependent -Coronary Artery disease -CHF with EF <40% -Uncontrolled DM with HgA1C >8 -Renal disease, on hemodialysis -BMI greater than 50 -Surgery in last 2 months -Chronic Opioid use/chronic pain, AL only -pyscho/social issues, [place] only if yes to any above, order preop physical for all sites N/A Arrival Time: Patient informed of Televox yes Reviewed booklet with patient including prep, procedural expectations, NPO instructions, medication instructions, arrival time and that they need a intermodal truck driver: yes Patient verbalizes understanding of education provided and number to call if questions arise: [facility] Endoscopy [facility] [phone] yes Additional Comments: N/A If patient is concerned he is not empting pre-procedural, please call the listed number, based on location, the morning of. [phone] [place] [facility] [phone] [facility] [phone] [facility] [phone] [facility] [phone] [place] [facility] R APPLICATIONS DEVELOPMENT ENGINEER Telephone Encounter - Betsy Call R.N. - 03/24/2021 4:53 PM CST Pt Scheduled Date: 04/08/21 Education Date: 04/01/21 at 3:30pm Booklet: portal and mailed to the patient Prep: miralax Covid: warm transfer Comments: R APPLICATIONS DEVELOPMENT ENGINEER documented in this encounter Plan of Treatment Not on filedocumented as of this encounter Results SARS Coronavirus-2 RNA, V Asymptomatic (04/06/2021 10:16 AM SOLAR APPLICATIONS DEVELOPMENT ENGINEER) [facility] Method Time Signature SARS-CoV-2 Swab, 04/06/2021 E[facility] Specimen Nasopharynx 8:39 PM SOLAR APPLICATIONS DEVELOPMENT ENGINEER Source SARS CoV-2 Undetected Undetected 04/06/2021 ECLR RNA, TMA 8:39 PM SOLAR APPLICATIONS DEVELOPMENT ENGINEER Comment: SARS-CoV-2 RNA absent. This result does not rule out COVID-19 in the patient, as the sensitivity of the test depends o n the timing of the specimen collection and the quality of the specim en. Result should be correlated with patient's history and clinical presentat ion. ----ADDITIONAL INFORMATION---- This molecular amplification test was pe rformed using the Aptima SARS-CoV-2 assay ([employer] on the [employer] tem under emergency use authorization (EUA) by the U.S. Food and Drug Administ ration. Fact sheets for this EUA assay can be fo und at the following links: For Healthcare Providers: https://www.fd a.gov/media/854730/download For Patients: https://www.fda.gov/media/ 714685/download Specimen Anatomical Collection Method Collection Time Receive d Time (Source) Location / / Volume Laterality Varies 04/06/2021 10:16 04/06/2021 3:00 (Nasopharynx) AM SOLAR APPLICATIONS DEVELOPMENT ENGINEER PM SOLAR APPLICATIONS DEVELOPMENT ENGINEER Maverick Stuart M.D. LAB MICROBIOLOGY - GENERAL O SRIERALUCIA Performing Organization Address City/State/ZIP Code Phon e Number [facility]- [address] [place] [address] [phone] [facility] [place] [address] [address] documented in this encounter Visit Diagnoses Diagnosis Screening Cancer Colon - Primary documented in this encounter Care Teams Spring Internship Relationship Specialty Start Date End Date Maria G Henriquez M.B.B.S. PCP - General Internal Medicine 11/24/20 [address] [place] [address] documented as of this encounter
--- OUTSIDE RECORDS SUMMARY | 2021-11-01 17:30 | XMS_ITS | Encounter Summary ---
:1970 Author Organization [facility] Address [address] [place] [address] Care Team Providers Name Role Phone Maria G Henriquez .B.B.S. Primary Care Provider [phone] Encounter Details Date Type Department Care Team Description 04/25/2021 Clinical Communication Department of Maria G Henriquez , Internal Medicine in [facility] [place], [place] [address] [place] [address] [place] [address] Social History Tobacco Use Types [...] er 08/12/2021 How often do you attend yarsani or baptism services? Never 08/12/2021 Do you belong to any clubs or organizations such as yarsani N o 08/12/2021 groups, unions, fraternal or [...] place to sleep or slept in a halfway (including now)? Education Answer Date Recorded What is the highest level of school you have completed or 12 th grade 02/08/2021 the highest degree you have received? 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 He states it was a real common injection for allergies, but can't remember the name of it. He is going to attempt to complete a release of information and attach it to his portal so we can get medical records. If he is unable to do that he will stop in to the clinic and complete one. Telephone Encounter - Shreya Rodriguez - 04/25/2021 10:27 AM CDT Reason for Communication: Allergy injection Current Can Nursing/Provider leave a detailed message?: Yes Did the patient refuse triage through Nurse line? (for symptom based concerns): NA Action Needed: Patient called to schedule an allergy injection. He stated that it was a basic Allergy injection that he used to get at another clinic before moving to [place]. Please review and call patient to advise/schedule Name of Medication (if relevant): NA Please send all scheduling replies to scheduling pool. documented in this encounter Plan of Treatment Not on filedocumented as of this encounter Visit Diagnoses Not on filedocumented in this encounter Additional Health Concerns Assessment Noted Time PHQ-9 Depression Total Score: 4 04/19/2021 2:49 PM UNDERWATER PHOTOGRAPHER documented as of this encounter Care Teams Powerhouse Mechanic Helper Relationship Specialty Start Date End Date Maria G Henriquez M.B.B.S. PCP - General Internal Medicine 11/24/20 [address] [place] [id number] documented as of this encounter
--- OUTSIDE RECORDS SUMMARY | 2021-11-01 17:30 | XMS_ITS | Encounter Summary ---
:1970 Author Organization [facility] Address [address] [place] [address] Care Team Providers Name Role Phone Diana Prieto M.B.B.S. Primary Care Provider [phone] Reason for Visit Reason Comments Establish Care concerns of diabetes and dory riod injection referrla to ortho Encounter Details Date Type Department Care Team Description 12/02/2020 Comprehensive Visit Department of Diana Prieto Diab etes Mellitus Type 2 (HCC) (Primary Dx); Internal Medicine Elaine, M.B.B.S. PreDiabetes; in [place] [id number] Impaired Fasting Glucose; [place], [place] Obesity Unspecified; [address] [address] Hyperlipidemia Mixed; [place], [place] [phone] Depression Whitley r One Episode Moderate (HCC); [id number] (Work) Constipation; [phone] Deficiency Alissa min D; (Fax) Osteoarthritis Social History Tobacco Use Types Packs/Day Years Used Date Smoking Tobacco: Never Smokeless Tobacco: Never Alcohol Habits Answer Date Recorded How often [...] er 08/12/2021 How often do you attend islam or anabaptist services? Never 08/12/2021 Do you belong to any clubs or organizations such as islam N o 08/12/2021 groups, unions, fraternal or [...] or slept in a [facility] (including now)? 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 - 12/02/2020 4:00 PM CDT SUBJECTIVE CHIEF COMPLAINT / REASON FOR VISIT Miguel Navarro is a 50 y.o. male who presents for evaluation of Establish Care (concerns of diabetes and steriod injection referrla to ortho). HISTORY OF PRESENT ILLNESS 50 years old male with medical history pertinent for morbid obesity, hyperlipidemia, pre diabetes, depression, and osteoarthritis of the knees and hands who came into the clinic to establish care today. The patient moved from [facility] to [facility] 2 months ago. He started new jobhere. He regularly takes Zoloft and Crestor and has enough refills for the next 3 months. He reportsthat his mood is well controlled with Zoloft. He is currently not following any specific diet but his helps him eat healthy but with limited success to control patient's snacking habits and portion control. The patient has history of intermittent chest pain with extensive workup that ruled out coronary artery disease. He also has sleep apnea and uses CPAP at night. He reports being constipated. He does not smoke or drink alcohol. He has history of bilateral knee osteoarthritis requiring steroid injections by [facility] back in [place]. Today he has no joint pains. The following portions of the patient's history were reviewed and updated as appropriate: allergies,current medications, family history, medical history, social history, surgical history and problem list. REVIEW OF SYSTEMS Gastrointestinal: Positive for constipation. All other systems reviewed and are negative. OBJECTIVE BP 134/84 Pulse 63 Temp 36.3 ??C (Temporal) Ht 177.6 cm Wt 128 kg BMI 40.55 kg/m?? PHYSICAL EXAM Physical Exam GENERAL: In general, patient is morbidly obese gentleman appears in no acute distress Vitals charted as above HEENT: Normocephalic, atraumatic head. Pupils are equal round and reactive, sclerae white, conjunctivae pink, lids and lashes normal. Ears have normal-appearing auricle and tragus. Tympanic membranes visualized and without erythema. External nose normal in appearance. Mucous membranes are moist. Pharynx is without erythema or exudate. NECK: Supple, no lymphadenopathy or thyromegaly, no carotid bruits appreciated. HEART: Normal S1 and S2 [heart sounds], regular rhythm, [no murmur], no gallop or rub appreciated. LUNGS: [Clear to auscultation, normal respiratory effort] ABDOMEN: Soft, nontender, nondistended, bowel sounds normal. No rebound or guarding. MUSCULOSKELETAL: Normal muscle mass, no active joint inflammation SKIN: No rash, no jaundice Recent Results (from the past 24 hour(s)) Lipid Panel Collection Time: 12/07/20 8:04 AM Result Value Cholesterol, Total, P 137 Triglycerides, Fasting, P 137 Cholesterol, HDL, P 40 Calculated LDL 70 Non HDL Cholesterol 97 Comprehensive Metabolic Panel Collection Time: 12/07/20 8:04 AM Result Value Potassium, P 4.1 Sodium, P 140 Chloride, P 105 Bicarbonate, P 24 Anion Gap, P 11 BUN (Blood Urea Nitrogen), P 13 Creatinine, P 0.90 eGFR-Black/ >90 eGFR Non-Black/ >90 Calcium, Total, P 9.5 Glucose, P 133 Protein, Total, P 7.1 Albumin, P 4.4 Aspartate Aminotransferase (AST), P 20 Alkaline Phosphatase, P 87 Alanine Aminotransferase (ALT), P 23 Bilirubin, Total, P 0.5 CBC with Differential, Blood Collection Time: 12/07/20 8:04 AM Result Value Hemoglobin 14.6 Hematocrit 41.9 Erythrocytes 4.83 MCV 86.7 RBC Distrib Width 12.4 Platelet Count 273 Leukocytes 6.4 Neutrophils 4.08 Lymphocytes 1.56 Monocytes 0.55 Eosinophils 0.13 Basophils 0.04 S-TSH (Thyroid-Stimulating Hormone - Sensitive) Collection Time: 12/07/20 8:04 AM Result Value TSH, Sensitive, P 1.9 Hemoglobin A1c Collection Time: 12/07/20 8:04 AM Result Value Hemoglobin A1c, B 6.6 (H) ASSESSMENT / PLAN #1 type 2 diabetes, new diagnosis His most recent hemoglobin A1c in May of 2020 was 6.3. Currently not following any specific diet. There is struggle to keep up with his snacking habits and drinking soda. - hemoglobin A1c - fasting CMP #2 Morbid obesity Secondary to calorie excess. BMI 40.55. Encouraged to pursue healthy lifestyle with healthy eating and exercise. #3 Hyperlipidemia Mixed On Crestor 20 mg daily. Will get fasting lipid panel next week. #4 Depression Major One Episode Moderate (HCC) His mood is well controlled now with Zoloft 20 mg daily. He has enough refills for the next 3 months. #5 Constipation Metamucil ordered. #6 Deficiency Vitamin D History of deficiency in 2016, will recheck level next week. #7 Osteoarthritis Of knees bilaterally. Currently stable and not needing injections since he switched to more sedentary work environment. documented in this encounter Miscellaneous Notes Addendum Note - Diana Prieto M.B.BHairS. - 12/02/2020 4:00 PM CDT Addended by: DIANA PRIETO on: 12/07/2020 10:13 AM Modules accepted: Orders documented in this encounter Plan of Treatment Not on filedocumented as of this encounter Results (ABNORMAL) Hemoglobin A1c (03/14/2021 7:39 AM SUPPORT ASSISTANT) athologist Signature Hemoglobin A1c, 5.8 (H) 4.2 - 5.6 03/14/2021 [facility] B % 7:57 AM SUPPORT ASSISTANT Comment: Hemoglobin A1c values of 5.7-6.4 percent indicate an increased risk for developing diabetes elaine chow. In diabetic patients, HbA1c goals should be discussed with healthcare provider. Specimen Anatomical Collection Method Collection Time Receive d Time (Source) Location / / Volume Laterality Blood (Blood, 03/14/2021 7:39 AM 03/14/19 7:43 Venous) SUPPORT ASSISTANT AM SUPPORT ASSISTANT Diana Junior LAB BLOOD ADD-ON Performing Organization Address City/State/ZIP Code Phon e Number [facility]- [address] [place] [address] [address] [place] [address] System in [place] [address] [place] [address] 25-Hydroxyvitamin D2 and D3 (12/07/2020 8:04 AM CDT) athologist Signature 25-Hydroxy D2 4.1 ng/mL 12/09/2020 [facility] 12:28 PM CDT 25-Hydroxy D3 28 ng/mL 12/09/2020 [facility] 12:28 PM CDT 25-Hydroxy D 32 ng/mL 12/09/2020 [facility] Total 12:28 PM CDT Comment: ----REFERENCE VALUE---- 25-HYDROXY D TOTAL (D2+D3) Optimum level s in the healthy population are 20-50, patients with bone disease may benefit from higher levels within this r nasir. ----ADDITIONAL INFORMATION---- This test was developed and its performa nce characteristics determined by [facility] in a manner consistent with CLIA requirements. This test has not been cleared or approved by the U.[place]. An[place] d and Drug Administration. Specimen Anatomical Collection Method Collection Time Receive d Time (Source) Location / / Volume Laterality Blood (Blood, 12/07/2020 8:04 AM 12/09/19 7:28 Venous) CDT AM CDT Diana Junior LAB BLOOD ADD-ON Performing Organization Address City/State/ZIP Code Phon e Number [facility] [address] [place], [place] [address] [place] [address] [place] [address] Laboratory Medicine and Pathology [address] [place] (ABNORMAL) Hemoglobin A1c (12/07/2020 8:04 AM CDT) P athologist Signature Hemoglobin A1c, 6.6 (H) 4.2 - 5.6 12/07/2020 [facility] B % 8:24 AM CDT Comment: Hemoglobin A1c values greater than or eq ual to 6.5 percent are diagnostic for diabetes mellitus. ?? Diagnosis should be confirmed by repeat testing. ??In diabet ic patients, HbA1c goals should be discussed with healthcar e provider. Specimen Anatomical Collection Method Collection Time Receive d Time (Source) Location / / Volume Laterality Blood (Blood, 12/07/2020 8:04 AM 12/08/19 8:06 Venous) CDT AM CDT Diana Junior LAB BLOOD ADD-ON Performing Organization Address City/[facility]/ZIP Code Phon e Number [address] [place] [address] System in [address] S-TSH (Thyroid-Stimulating Hormone - Sensitive) (12/07/2020 8:04 AM CDT) P athologist Signature TSH, Sensitive 1.9 0.3 - 4.2 12/07/2020 [facility] mIU/L 9:01 AM CDT Specimen Anatomical Collection Method Collection Time Receive d Time (Source) Location / / Volume Laterality Blood (Blood, 12/07/2020 8:04 AM 12/08/19 8:06 Venous) CDT AM CDT Diana AlvarezSHair LAB BLOOD ADD-ON Performing Organization Address City/State/ZIP Code Phon e Number [facility]- [address] [facility] [place], [place] [address] [place] [facility] [place] [address] System in [place] [address] CBC with Differential, Blood (12/07/2020 8:04 AM CDT) P athologist Signature Hemoglobin 14.6 13.2 - 12/07/2020 [facility] 16.6 g/dL 8:10 AM CDT Hematocrit 41.9 38.3 - 12/07/2020 [facility] 48.6 % 8:10 AM CDT Erythrocytes 4.83 4.35 - 12/07/2020 [facility] 5.65 8:10 AM CDT x10(12)/L MCV 86.7 78.2 - 12/07/2020 [facility] 97.9 fL 8:10 AM CDT RBC Distrib Width 12.4 11.8 - 12/07/2020 [facility] 14.5 % 8:10 AM CDT Platelet Count 273 135 - 317 12/07/2020 [facility] x10(9)/L 8:10 AM CDT Leukocytes 6.4 3.4 - 9.6 12/07/2020 [facility] x10(9)/L 8:10 AM CDT Neutrophils 4.08 1.56 - 12/07/2020 [facility] 6.45 8:10 AM CDT x10(9)/L Lymphocytes 1.56 0.95 - 12/07/2020 [facility] 3.07 8:10 AM CDT x10(9)/L Monocytes 0.55 0.26 - 12/07/2020 [facility] 0.81 8:10 AM CDT x10(9)/L Eosinophils 0.13 0.03 - 12/07/2020 [facility] 0.48 8:10 AM CDT x10(9)/L Basophils 0.04 0.01 - 12/07/2020 [facility] 0.08 8:10 AM CDT x10(9)/L Specimen Anatomical Collection Method Collection Time Receive d Time (Source) Location / / Volume Laterality Blood (Blood, 12/07/2020 8:04 AM 10/26/20 21 8:06 Venous) CDT AM CDT Diana Junior LAB BLOOD ADD-ON Performing Organization Address City/State/ZIP Code Phon e Number [facility]- [address] [place] [address] [facility] [place] [address] System in [place] [address] Comprehensive Metabolic Panel (12/07/2020 8:04 AM CDT) P athologist Signature Potassium, P 4.1 3.6 - 5.2 12/07/2020 [facility] mmol/L 9:01 AM CDT Comment: Testing performed on serum Sodium, P 140 135 - 145 mmol/L 12/07/2020 9:01 AM CDT [facility] Chloride, P 105 98 - 107 mmol/L 12/07/2020 9:01 AM CDT [facility] Bicarbonate, P 24 22 - 29 mmol/L 12/07/2020 9:01 AM C DT [facility] Anion Gap, P 11 7 - 15 12/07/2020 9:01 AM CDT [facility] BUN (Blood Urea Nitrogen), P 13 8 - 24 mg/dL 12/08/19 9:01 AM CDT [facility] Creatinine 0.90 0.74 - 1.35 mg/dL 12/07/2020 9:01 AM CD T [facility] eGFR-Black/ >90 >=60 mL/min/BSA 2020 9:01 AM CDT [facility] Comment: ----ADDITIONAL INFORMATION---- Estimated GFR calculated using the 2009 CKD_EPI creatinine equation. eGFR Non-Black/ >90 >=60 mL/min/BSA 12/07/2020 9:01 AM CDT [facility] Comment: ----ADDITIONAL INFORMATION---- Estimated GFR calculated using the 2009 CKD_EPI creatinine equation. Calcium, Total, P 9.5 8.6 - 10.0 mg/dL 12/07/2020 9:01 AM CDT [facility] Glucose, P 133 70 - 140 mg/dL 12/07/2020 9:01 AM CDT R DW[facility] Protein, Total, P 7.1 6.3 - 7.9 g/dL 12/07/2020 9:01 A M CDT [facility] Albumin, P 4.4 3.5 - 5.0 g/dL 12/07/2020 9:01 AM CDT R [facility] Aspartate Aminotransferase 20 8 - 48 U/L 12/07/2020 9 :01 AM CDT [facility] (AST), P Alkaline Phosphatase, P 87 40 - 129 U/L 12/07/2020 9: 01 AM CDT [facility] Alanine Aminotransferase (ALT), 23 7 - 55 U/L 9:01 AM CDT [facility] P Bilirubin, Total, P 0.5 <=1.2 mg/dL 12/07/2020 9:01 AM CDT [facility] Specimen Anatomical Collection Method Collection Time Receive d Time (Source) Location / / Volume Laterality Blood (Blood, 12/07/2020 8:04 AM 12/08/19 8:06 Venous) CDT AM CDT Diana Junior LAB BLOOD ADD-ON Performing Organization Address City/State/ZIP Code Phon e Number [facility]- [address] [place] [address] [address] [place] [address] System in [address] Lipid Panel (12/07/2020 8:04 AM CDT) P athologist Signature Cholesterol, 137 mg/dL 12/07/2020 [facility] Total 9:01 AM CDT Comment: ----REFERENCE VALUE---- Desirable: < 200 Borderline high: 200 - 239 High: > or = 240 Triglycerides 137 mg/dL 12/07/2020 9:01 AM CDT RDW G Comment: ----REFERENCE VALUE---- Normal: <150 Borderline high: 150-199 High: 200-499 Very high: > or =500 Cholesterol, HDL 40 >=40 mg/dL 12/07/2020 9:01 AM CDT [facility] Calculated LDL 70 mg/dL 12/07/2020 9:[address] WG Comment: ----REFERENCE VALUE---- Desirable: <100 mg/dL Above Desirable: 100-129 mg/dL Borderline High: 130-159 mg/dL High: 160-189 mg/dL Very High: >=190 mg/dL Cholesterol, Non-HDL, Calculated 97 mg/dL 021 9:01 AM CDT [facility] Comment: ----REFERENCE VALUE---- Desirable: <130 Above Desirable: 130-159 Borderline high: 160-189 High: 190-219 Very high: > or =220 Specimen Anatomical Collection Method Collection Time Receive d Time (Source) Location / / Volume Laterality Blood (Blood, 12/07/2020 8:04 AM 12/08/19 8:06 Venous) CDT AM CDT Diana AlvarezS. LAB BLOOD ADD-ON Performing Organization Address City/State/ZIP Code Phon e Number [facility]- [address] [place], [place] [address] [place] [address] System in [place] [address] Mason documented in this encounter Visit Diagnoses Diagnosis Diabetes Mellitus Type 2 (HCC) - Primary PreDiabetes Impaired Fasting Glucose Obesity Unspecified Hyperlipidemia Mixed Depression Major One Episode Moderate (H CC) Constipation Deficiency Vitamin D Osteoarthritis documented in this encounter Care Teams Corn Detasseler Machine Operator Relationship Specialty Start Date End Date Diana Prieto M.B.B.S. PCP - General Internal Medicine 11/24/20 [address] [place] [address] documented as of this encounter
--- OUTSIDE RECORDS SUMMARY | 2021-11-01 17:30 | XMS_ITS | Encounter Summary ---
:1970 Author Organization [facility] Address [address] [place] [address] Care Team Providers Name Role Phone Maria G Henriquez M.B.B.S. Primary Care Provider [phone] Encounter Details Date Type Department Care Team Description 02/17/2021 Orders Only [facility] PCP [facility] MNT Maria G Henriquez, Diabetes Mellitus Type M.B.B.S. 2 (FORM[facility]LY [facility] [address] [place] [phone] Social History Tobacco Use Types Packs/Day [...] often do you attend oriental orthodox or protestant services? Never 08/12/2021 Do you belong to [...] place to sleep or slept in a [facility] (including now)? Education Answer Date Recorded What is the highest level of school you have completed or 12 th grade 02/08/2021 the highest degree you have received? 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 PCP - General Internal Medicine 11/24/[address] [place] [phone] documented as of this encounter
--- OUTSIDE RECORDS SUMMARY | 2021-11-01 17:30 | XMS_ITS | Encounter Summary ---
:1970 Author Organization [facility] Address [address] [place] [address] Care Team Providers Name Role Phone Maria G HenriquezB.B.S. Primary Care Provider [phone] Reason for Referral Specialty Diagnoses / Procedures Referred By Contact Refer red To Contact Maria G Henriquez M .B.B.S. [facility] Region [address] [place] [phone] Referral ID Status Reason Start Date Expiration Date Visits Requ ested Visits Authorized RNAL CARVER Encounter Details Date Type Department Care Team Description 01/04/2021 Orders Only [facility] PCP [facility] Dennise Henriquez M.B.B.S. [address] [place] [phone] (Wo rk) Social History Tobacco [...] er 08/12/2021 How often do you attend hinduism or adventist services? Never 08/12/2021 Do you belong to any clubs or organizations such as hinduism N o 08/12/2021 groups, unions, fraternal or [...] place to sleep or slept in a retirement (including now)? 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 PCP - General Internal Medicine 11/24/20 [address]AU[address] [place] [phone] documented as of this encounter
--- OUTSIDE RECORDS SUMMARY | 2021-11-01 17:30 | XMS_ITS | Encounter Summary ---
:1970 Author Organization [facility] Address [address] [place] [address] Care Team Providers Name Role Phone Maria G HenriquezB.S. Primary Care Provider [phone] Reason for Referral Behavioral Health (Routine) - Closed Specialty Diagnoses / Procedures Referred By Contact Refer red To Contact Psychiatry / Psychiatry Diagnoses Depression Major One Episode Moderate (HCC) Maria G Henriquez [facility] M.B.B.S. [address] [place] [address] Referral ID Status Reason Start Date Expiration Date Visits Requ ested Visits Authorized [id number] Closed 02/08/2021 02/08/2022 1 1 ERSITY TUTOR Outpatient (Routine) - Closed Specialty Diagnoses / Procedures Referred By Contact Refer red To Contact Community Internal Diagnoses Depression Major One Episode Moderate (HCC) Maria G Henriquez [facility] Medicine M.B.B.S. [address] [place] [address] Referral ID Status Reason Start Date Expiration Date Visits Requ ested Visits Authorized [id number] Closed 02/08/2021 02/08/2022 1 1 ERSITY TUTOR Reason for Visit Reason Comments Follow-up meds Appointment Request (Routine) - Closed Specialty Diagnoses / Procedures Referred By Contact Refer red To Contact Community Internal Medicine Referral ID Status Reason Start Date Expiration Date Visits Requ ested Visits Authorized [id number] Closed 01/27/2021 01/27/2022 1 1 Encounter Details Date Type Department Care Team Description 02/08/2021 Comprehensive Visit Department of Maria G Henriquez Major One Episode Moderate (HCC) (Primary Dx); Internal Medicine Sandi Barajas Morbid Obesity (HCC) in [address] [address] [place], [place] [phone] (Work) [phone] Social History Tobacco Use Types Packs/Day Years [...] er 08/12/2021 How often do you attend yazidism or taoist services? 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 - 02/08/2021 4:30 PM CST SUBJECTIVE CHIEF COMPLAINT / REASON FOR VISIT Miguel Navarro is a 50 y.o. male who presents for evaluation of Follow-up (meds). HISTORY OF PRESENT ILLNESS 50 years old male with medical history of major depressive disorder who came into the clinic today complaining of worsening symptoms that he attributed to his depression. He is on Prozac 20 mg daily. He used to be on Celexa which made his mood unstable ranging between euphoric and sad. His mood was stable for the last 2 years since he started who Prozac but for the last few months he feels that he isbecoming less empathetic at not caring about people. This new behavioral change is bothersome to thepatient and also to his . Patient reports that his noticed these changes in his behavior, for instance after his father passed, she noticed that his response was not appropriate to grief or loss of loved one but was apathetic. She also noted that he is becoming more direct and short with people that he works with and withher as well. Patient reports also decreased libido and decreased sleep. Patient is wondering if thisis a side effect of his Prozac or he needs medication change or adjustment. The following portions of the patient's history were reviewed and updated as appropriate: allergies,current medications, family history, medical history, social history, surgical history and problem list. REVIEW OF SYSTEMS Constitutional: Positive for fatigue. Skin: Positive for skin rash and change in mole or skin spot. Eyes: Positive for visual problems. Respiratory: Positive for coughing up mucus (phlegm). Cardiovascular: Positive for chest pain, pressure or tightness, swelling in the legs or feet, rapid or fluttering heart beat and pain in the calf muscles when walking. Gastrointestinal: Positive for abdominal (belly) pain or cramping and constipation. Genitourinary: Positive for decreased libido and urgency. Musculoskeletal: Positive for arthralgias, back pain, pain or stiffness in the joints, joint swelling and muscle pain/stiffness. Neurological: Positive for light-headedness, numbness or shooting pain in hands, arms, legs, or feet, excessive daytime sleepiness, loss of balance or tendency to fall easily, headaches and weakness inarms or legs. Psychiatric/Behavioral: Positive for decreased libido, excessive daytime sleepiness/tiredness, snores loudly, little interest or pleasure in doing things over past two weeks, feeling down, depressed, or hopeless over past two weeks, not being able to stop or control worrying over past two weeks and feeling nervous, anxious, or on edge in past two weeks. The following systems were negative: ENT, Hematologic OBJECTIVE BP 134/87 Pulse 77 Temp 36 ??C Ht 177.6 cm Wt 123 kg BMI 38.84 kg/m?? PHYSICAL EXAM General: Pleasant middle-aged male, mood is depressed. No physical exam done. ASSESSMENT / PLAN #1 Depression Major One Episode Moderate (HCC) Patient is on Prozac 20 mg for a year and half. He feels that this medication worked well for him but he has concern regarding behavioral change that was noticed by his and and thinks this may affect his work and marriage. Patient feels that he is less empathetic to strangers at times, and havingshort temper with his coworkers and his . Patient wondering if he needs to change his medicationor if he dose of medication need to be adjusted. Patient reports that his noticed these changes in his behavior, for instance after his father passed, she noticed that his response was not appropriate to grief or loss of loved one but was apathetic. She also noted that he is becoming more direct and short with people that he works with and withher as well. Patient reports also decreased libido and decreased sleep. - increasing his dose of Prozac to 40 mg daily - referral to [facility] for further evaluation and adjustment his medication if needed #2 Morbid Obesity (HCC) Counseled on diet and exercise for weight loss. ERSITY TUTOR documented in this encounter Plan of Treatment Scheduled Referrals Name Type Priority Associated Order Schedule Diagnoses Community Internal Outpatient Referral Routine Depression Whitley r Expected: Medicine office One Episode 03/14/2021, visit (clinic) Moderate (HCC) Expires: 05/09/2022 Psychiatry and Outpatient Referral Routine Depression Major Ex pected: Psychology - One Episode 02/08/2021 Integrated Moderate (HCC) (Approximate) , behavioral health Expires: consult (clinic) 05/09/2022 documented as of this encounter Visit Diagnoses Diagnosis Depression Major One Episode Moderate (H CC) - Primary Morbid Obesity (HCC) documented in this encounter Care Teams Director Ehs Relationship Specialty Start Date End Date Maria G Henriquez M.B.B.S. PCP - General Internal Medicine 11/24/20 [address] [place] [phone] documented as of this encounter
--- OUTSIDE RECORDS SUMMARY | 2021-11-01 17:30 | XMS_ITS | Encounter Summary ---
:1970 Author Organization [facility] Address [address] [place] [address] Care Team Providers Name Role Phone Maria G Henriquez M.B.B.S. Primary Care Provider [phone] Encounter Details Date Type Department Care Team Description 12/07/2020 Hospital Encounter Department of Maria G Henriquez Hyper lipidemia Mixed; Laboratory Medicine Karl M.B.B.S. PreDiabetes; [address] Impaired Fasting Glucose; [place], [place] Obesity Unspecified; [facility] [place] [address] Deficiency Vitamin D [place], [place] [phone] (Work) [phone] Social History Tobacco Use Types Packs/Day Years [...] er 08/12/2021 How often do you attend methodist or caodaism services? Never 08/12/2021 Do you belong to any clubs or organizations such as methodist N o 08/12/2021 groups, unions, fraternal or [...] place to sleep or slept in a custodial (including now)? 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 Strips) strips lancing device misc 1 each by not 0 05/26/2020 applicable route. FLUoxetine (PROzac) 20 Take 20 mg by mouth. 0 02/08/2021 mg capsule metFORMIN XR Take 1 tablet (500 mg 60 tablet 11 12/07/2020 1 02/29/2020 (GLUCOPHAGE-XR) 500 mg total) by mouth daily 24 hr with breakfast for 7 tabletIndications: days, THEN 2 tablets Diabetes Mellitus Type (1,000 mg total) 2 (HCC) daily with breakfast. polyethylene Drink 1st portion of 4000 mL 0 01/03/2021 glycol-electrolytes prep at 6 PM the (GoLYTELY) evening before. 2nd [id number] -5.86 portion must be gram started 3 hours solutionIndications: before and finished 2 Screening Cancer Colon hours prior to report time psyllium (METAMUCIL) Take 2 capsules (1.04 100 capsule 2 03/14/2021 0.52 gram g total) by mouth capsuleIndications: daily. Constipation rosuvastatin (CRESTOR) rosuvastatin 20 mg 0 06/1003/14/2021 20 mg tablet tablet documented as of this encounter Miscellaneous Notes Result Encounter Note - Maria G Henriquez M.B.BHairS. - 12/07/2020 10:07 AM CDT Patient hemoglobin A1c is 6.6. has type 2 diabetes. I called him and communicate this new diagnosis.I will start him on metformin 500 mg daily for one week followed by 500 mg twice daily moving forward. documented in this encounter Plan of Treatment Not on filedocumented as of this encounter Procedures Procedure Name Priority Date/Time Associated Diagnosis Comme nts LIPID PANEL, S Routine 12/07/2020 8:04 Hyperlipidemia Mixed Re sults for this AM CDT procedure are i n the results section. 25-HYDROXYVITAMIN D2 Routine 12/07/2020 8:04 Deficiency Vitami n D Results for this AND D3, S AM CDT procedure are i n the results section. CBC WITH Routine 12/07/2020 8:04 PreDiabetes Results for this DIFFERENTIAL, B AM CDT Impaired Fasting procedur e are in Glucose the results section. THYROID-STIMULATING Routine 12/07/2020 8:04 Obesity Unspecifie d Results for this HORMONE-SENSITIVE AM CDT procedure are in (S-TSH) the results section. HEMOGLOBIN A1C, B Routine 12/07/2020 8:04 PreDiabetes Results for this AM CDT procedure are i n the results section. COMPREHENSIVE Routine 12/07/2020 8:04 PreDiabetes Results for this METABOLIC PANEL, S/P AM CDT procedu re are in the results section. documented in this encounter Results 25-Hydroxyvitamin D2 and D3 (12/07/2020 8:04 AM CDT) P athologist Signature 25-Hydroxy D2 4.1 ng/mL 12/09/2020 [...] and its performa nce characteristics determined by [facility] in a manner consistent with CLIA requirements. This test has not been cleared or approved by the [place] An[place] d and Drug Administration. Specimen Anatomical Collection Method Collection Time Receive d Time (Source) Location / / Volume Laterality Blood (Blood, 12/07/2020 8:04 AM 12/09/19 7:28 Venous) CDT AM CDT Maria G Junior LAB BLOOD ADD-ON Performing Organization Address City/[facility]/ZIP Code Phon e Number [facility] [address] [place], [place] [address] [place] [address] [place] [address] Laboratory Medicine and Pathology [address] [place] (ABNORMAL) Hemoglobin A1c (12/07/2020 8:04 AM CDT) athologist Signature Hemoglobin A1c, 6.6 (H) 4.2 [...] AM 12/08/19 8:06 Venous) CDT AM CDT Maria G Junior LAB BLOOD ADD-ON Performing Organization Address [facility] Phon e Number [facility]- [address] [place] [address] [address] [place] [address] [address] S-TSH (Thyroid-Stimulating Hormone - Sensitive) (12/07/2020 8:04 AM CDT) athologist Signature TSH, Sensitive 1.9 0.3 - 4.2 12/07/2020 [facility] mIU/L 9:01 AM CDT Specimen Anatomical Collection Method Collection Time Receive d Time (Source) Location / / Volume Laterality Blood (Blood, 12/07/2020 8:04 AM 12/08/19 8:06 Venous) CDT AM CDT Maria G Junior LAB BLOOD ADD-ON Performing Organization Address City/State/ZIP Code Phon e Number [facility]- [address] [facility] [place] [address] [facility] [place] [address] System in [place] [address] [place] [address] CBC with Differential, Blood (12/07/2020 8:04 AM [...] AM 12/08/19 8:06 Venous) CDT AM CDT Maria G Junior LAB BLOOD ADD-ON Performing Organization Address City/State/ZIP Code Phon e Number [facility]- [address] [facility] [address] [facility] [place] [address] System in [place] [address] [facility] Comprehensive Metabolic Panel (12/07/2020 8:04 AM CDT) [...] Aminotransferase (ALT), 23 7 - 55 U/L 021 9:01 AM CDT RDW[facility] P Bilirubin, Total, P 0.5 <=1.2 mg/dL 12/07/2020 9:01 AM CDT RDW[facility] Specimen Anatomical Collection Method Collection Time Receive d Time (Source) Location / / Volume Laterality Blood (Blood, 12/07/2020 8:04 AM 12/08/19 8:06 Venous) CDT AM CDT Maria G Junior LAB BLOOD ADD-ON Performing Organization Address City/State/ZIP Code Phon e Number [facility]- [address] [place] [address] [address] [place] [address] System in [address] Lipid Panel (12/07/2020 8:04 AM CDT) athologist Signature Cholesterol, 137 mg/dL 12/07/2020 [facility] [...] AM 12/08/19 8:06 Venous) CDT AM CDT Maria G AlvarezS. LAB BLOOD ADD-ON Performing Organization Address City/State/ZIP Code Phon e Number [facility]- [address] [place], [place] [address] [place] [address] System in [place] [address] documented in this encounter Visit Diagnoses Diagnosis Hyperlipidemia Mixed PreDiabetes Impaired Fasting Glucose Obesity Unspecified Deficiency Vitamin D documented in this encounter Care Teams Construction Recruiter Relationship Specialty Start Date End Date Maria G Henriquez M.B.B.S. PCP - General Internal Medicine 11/24/20 [address] [place] [address] documented as of this encounter
--- OUTSIDE RECORDS SUMMARY | 2021-11-01 17:30 | XMS_ITS | Encounter Summary ---
:1970 Author Organization [facility] Address [address] [place] [address] Care Team Providers Name Role Phone Maria G HenriquezB.S. Primary Care Provider [phone] Reason for Referral Outpatient (Routine) - Authorized Specialty Diagnoses / Procedures Referred By Contact Refer red To Contact Community Internal Diagnoses Morbid Obesity (HCC) Diabetes Mellitus Type 2 (HCC) Maria G Henriquez [facility] [place] M.B.B.S. [address] [place] [address] Referral ID Status Reason Start Date Expiration Date Visits V isits Requested Authorized [id number] Authorized 03/14/2021 03/14/2022 1 1 ATRICS TEACHER Reason for Visit Reason Comments Follow-up Diabetes Outpatient (Routine) - Closed Specialty Diagnoses / Procedures Referred By Contact Refer red To Contact Community Internal Diagnoses Depression Major One Episode Moderate (HCC) Maria G Henriquez [facility] [place] M.B.B.S. [address] [place] [address] Referral ID Status Reason Start Date Expiration Date Visits Requ ested Visits Authorized [id number] Closed 02/08/2021 02/08/2022 1 1 Encounter Details Date Type Department Care Team Description 03/14/2021 Office Visit Department of Maria G Henriquez Diabetes Me llitus Type 2 (HCC) (Primary Dx); Internal Medicine Nellie LaraB.S. Morbid Obesity (HCC); [place], [place] [address] Depression Major One Episode Moderate (H CC); [address] [place], [place] Screening Colon Cancer [place] ge Risk; [place] [address] Hyperlipidemia Mixed [phone] Social History Tobacco Use Types Packs/Day [...] er 08/12/2021 How often do you attend zoroastrianism or latter day services? Never 08/12/2021 Do you belong to any clubs or organizations such as zoroastrianism N o 08/12/2021 groups, unions, fraternal or [...] place to sleep or slept in a assisted (including now)? Education Answer Date Recorded What is the highest level of school you have completed or 12 th grade 02/08/2021 the highest degree you have received? 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 - 03/14/2021 3:30 PM CST SUBJECTIVE CHIEF COMPLAINT / REASON FOR VISIT Miguel Navarro is a 50 y.o. male who presents for evaluation of Follow-up (Diabetes/). HISTORY OF PRESENT ILLNESS 50 years old male who came into the clinic today for follow-up. He has type 2 diabetes and currently we are managing with diet and exercise. He lost around 20 lb since last time I saw him. His blood sugars are well controlled at home. He has history of depression. I increased his dose of Prozac to 40 mg 1 month ago after he came in with worsening depression. Since then his mood is stable. He has schedule appointment with Dr. Korin Randle. He has history of colonic polyps. He is due for colonoscopy and will schedule appointment. He would like to try MiraLax and Doculax instead of GoLYTELY for bowel prep. Order sent to his pharmacy. The following portions of the patient's history were reviewed and updated as appropriate: allergies,current medications, family history, medical history, social history, surgical history and problem list. REVIEW OF SYSTEMS All other systems reviewed and are negative. OBJECTIVE BP 139/86 Pulse 73 Temp (!) 35.9 ??C Ht 177.6 cm Wt 120 kg BMI 38.11 kg/m?? PHYSICAL EXAM Physical Exam Physical exam not done today. Lab Results Component Value Date NA 140 12/07/2020 CL 105 12/07/2020 CREATININE 0.90 12/07/2020 BUN 13 12/07/2020 ANIONGAP 11 12/07/2020 GLUCOSE 133 12/07/2020 CALCIUM 9.5 12/07/2020 Lab Results Component Value Date/Time HGBA1C 5.8 (H) 03/14/2021 07:39 AM HGBA1C 6.6 (H) 12/07/2020 08:04 AM Lab Results Component Value Date/Time CHOL 137 12/07/2020 08:04 AM TRIG 137 12/07/2020 08:04 AM HDL 40 12/07/2020 08:04 AM LDLCALC 70 12/07/2020 08:04 AM ASSESSMENT / PLAN #1 Diabetes Mellitus Type 2 (HCC) Major improvement of his hemoglobin A1c from 6.6 to 5.8 with diet and exercise. Will continue this approach and will follow-up with him in 6 months. - hemoglobin A1c in 6 months #2 Morbid Obesity (HCC) BMI of 38.1. He lost 8 kg since November 2020. He is following diet and exercise program avoiding carbohydrate. Congratulated the patient with his success and encouraged him to increase his physical activity as able. #3 Depression Major One Episode Moderate (HCC) Mood is stable since last time I saw him 1 month ago. He is on dose of Prozac 40 mg daily. Experiencing any side effects. He is scheduled with Dr. Brooks in April of 2021. #4 Screening Colon Cancer Average Risk Reordered colonoscopy and bowel prep regiment with MiraLax and Dulcolax. #5 Hyperlipidemia Mixed Refilled Crestor 20 mg daily. Will check lipid panel in 6 months. ATRICS TEACHER documented in this encounter Plan of Treatment Scheduled Referrals Name Type Priority Associated Diagnoses Order S [facility] Internal Outpatient Referral Routine Morbid Ob esity (HCC) Expected: Medicine office Diabetes Mellitus 022 visit (clinic) Type 2 (HCC) (Approximate) , Expires: 06/11/2022 documented as of this encounter Visit Diagnoses Diagnosis Diabetes Mellitus Type 2 (HCC) - Primary Morbid Obesity (HCC) Depression Major One Episode Moderate (H CC) Screening Colon Cancer Average Risk Hyperlipidemia Mixed documented in this encounter Care Teams Spine Supervisor Relationship Specialty Start Date End Date Maria G Henriquez M.B.B.S. PCP - General Internal Medicine 11/24/20 [place] [phone] documented as of this encounter
--- OUTSIDE RECORDS SUMMARY | 2021-11-01 17:30 | XMS_ITS | Encounter Summary ---
:1970 Author Organization [facility] Address [address] [place] [address] Care Team Providers Name Role Phone Maria G Henriquez M.B.B.S. Primary Care Provider [phone] Reason for Visit Reason Comments Med Refill Encounter Details Date Type Department Care Team Description 12/27/2020 Refill Department of Internal Maria G Henriquez, Med Refill Medicine in [place], .B.B.S[address] [address] [place] [address] [phone] Social History Tobacco Use Types Packs/Day Years [...] er 08/12/2021 How often do you attend moravian or gnosticist services? Never 08/12/2021 Do you belong to any clubs or organizations such as moravian N o 08/12/2021 groups, unions, fraternal or [...] or slept in a fci (including now)? 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 PCP - General Internal Medicine 11/24/20 [address] [place] [address] documented as of this encounter
--- OUTSIDE RECORDS SUMMARY | 2021-11-01 17:30 | XMS_ITS | Encounter Summary ---
:1970 Author Organization [facility] Address [address] [place] [address] Care Team Providers Name Role Phone Maria G Henriquez M.B.B.S. Primary Care Provider [phone] Encounter Details Date Type Department Care Team Description 12/29/2020 Orders Only [facility] PCP [facility] Maria G Henriquez, Screening Cancer Colon M.B.B.S. [address] [place] [address] Social History Tobacco Use Types [...] er 08/12/2021 How often do you attend catholic or advent services? Never 08/12/2021 Do you belong to any clubs or organizations such as catholic N o 08/12/2021 groups, unions, fraternal or [...] place to sleep or slept in a long-term (including now)? 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 PCP - General Internal Medicine 11/24/20 [address] [place] [phone] documented as of this encounter
--- OUTSIDE RECORDS SUMMARY | 2021-11-01 17:30 | XMS_ITS | Encounter Summary ---
:1970 Author Organization [facility] Address [address] [place] [address] Care Team Providers Name Role Phone Maria G Henriquez M.B.B.S. Primary Care Provider [phone] Reason for Visit Reason Comments Med Refill Encounter Details Date Type Department Care Team Description 02/22/2021 Refill Department of Internal Maria G Henriquez, Med Refill Medicine in [place], .B.B.S. [address] [address] [place] [address] [phone] Social History Tobacco Use Types Packs/Day Years [...] er 08/12/2021 How often do you attend yazdanism or bahai services? 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 PCP - General Internal Medicine 11/24/20 [address] [place] [id number] documented as of this encounter
--- OUTSIDE RECORDS SUMMARY | 2021-11-01 17:30 | XMS_ITS | Encounter Summary ---
:1970 Author Organization [facility] Address [address] [place] [address] Care Team Providers Name Role Phone Maria G Henriquez M.B.B.S. Primary Care Provider [phone] Encounter Details Date Type Department Care Team Description 12/29/2020 Orders Only [facility] PCP [facility] MNT Maria G Henriquez, Screening Cancer Colon M.B.B.S. [address] [place] [address] Social History Tobacco Use Types [...] er 08/12/2021 How often do you attend sabianist or rastafari services? Never 08/12/2021 Do you belong to any clubs or organizations such as sabianist N o 08/12/2021 groups, unions, fraternal or [...] or slept in a half-way (including now)? 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 PCP - General Internal Medicine 11/24/20 [address] [place] [address] documented as of this encounter
[2021-11-01] MEDS: cefTRIAXone 1 GM VIAL IM (17:42)
[2021-11-01] MEDS: predniSONE 10 MG TABLET 40 MG PO (17:42)
[2021-11-01] MEDS: LIDOCAINE 1% 5 ml (pf) 5 ML VIAL 2.1 ML IM (17:42)
[2021-11-01] MEDS: DOXYCYCLINE HYCLATE 100 MG CAPSULE PO (17:42)
== END 2021-11-01 17:54 | disposition home or self-care (01) ==
LOC: ED 17:27
PROVIDERS: Emergency Provider Family Medicine
DX: T63.461A Toxic effect of venom of wasps, accidental (unintentional), initial encounter (principal); Y92.9 Unspecified place or not applicable
CPT/HCPCS: 96372; 99283; 99284; A9270; J0696; J7512